=== PATIENT | male | born 1945 | race Caucasian/White ===

== ENCOUNTER 2018-06-30 15:01 | Emergency (ER) | payer OTHER, SELFPAY ==
[2018-06-30 15:06] VITALS: BP 144/83; PULSE 79; RESP 18; TEMP 35.9; O2SAT 97; BMI 36.0
--- NOTE | 2018-06-30 17:01 | DI.RAD.S_ITS ---
PROCEDURE: XR RIBS RT MIN 3V W CXR 1V INDICATIONS: pain R ribs after fall 4 days ago TECHNIQUE: 2 views of the right ribs were acquired, along with a single view chest. COMPARISON: None. FINDINGS: Surgical changes and devices: None. Bones and chest wall: There is likely a minimally displaced fracture of the posterior aspect of the right sixth rib. No other fractures or dislocations. Lungs and pleura: No pleural effusions or pneumothorax. Lungs appear clear. Mediastinum: Mediastinal contours appear normal. Heart size is normal. IMPRESSION: Minimally displaced posterior right sixth rib fracture. Dictated by: Susan Chen M.D. on 06/30/2018 at 17:35 Approved by: Susan Chen M.D. on 06/30/2018 at 17:37
--- NOTE | 2018-06-30 17:08 | PC.NURSE ---
Abrasions noted to the right arm. Patient states most of his pain is in the right rib/back area. It is made worse when he sits down and then leans forward to stand back up. Painful to touch.
--- NOTE | 2018-06-30 17:57 | ED.TRAUMA ---
HPI - Trauma <ALLISON Bustos-BC - Last Filed: 06/30/18 22:16> General Chief Complaint: Extremity Injury, Upper Stated Complaint: FALL SUNDAY,RIGHT SIDE ARM PAIN Time Seen by Provider: 06/30/18 16:43 Source: patient Mode of arrival: ambulatory Limitations: no limitations History of Present Illness HPI narrative: Patient presents with chief complaint of right-sided rib pain after ground level fall 4-5 days ago. He states he tripped and fell and landed with his ribs on a curb. He denies neck pain, back pain, neurological changes. He denies hitting his head. He states his injury is isolated to his right chest wall. He states it hurts to take a deep breath and hurts to move. He states he has not taken anything for pain at this point time. He states he is concerned that he fractured a rib given that he is not improving and would like an x-ray. Related Data Home Medications Medication Instructions Recorded Confirmed citalopram 20 mg PO QDAY #0 01/14/18 lisinopril 10 mg PO QDAY #0 01/14/18 metoprolol tartrate 25 mg PO QDAY #0 01/14/18 simvastatin 10 mg PO QDAY #0 01/14/18 Previous Rx's Medication Instructions Recorded docusate sodium [Colace] 100 mg PO BID #14 cap 01/22/18 oxycodone 5 mg PO Q4HP PRN #30 tab 01/22/18 sennosides [Senokot] 8.6 mg PO QDAY #10 tab 01/22/18 oxycodone-acetaminophen [Percocet] 1 tab PO Q4-6H PRN #14 tab 06/30/18 Allergies Allergy/AdvReac Type Severity Reaction Status Date / Time Penicillins [PENICILLINS] Allergy Unknown Verified 06/30/18 15:14 Review of Systems <RUPESH Bustos - Last Filed: 06/30/18 22:16> Review of Systems GENERAL: Denies chills, fatigue, malaise, fever, sweats. HEENT: Denies sinus pain, ear pain, sore throat, difficulty swallowing, dizziness. RESPIRATORY: Denies dyspnea, cough, wheezing, hemoptysis, sputum. CARDIOVASCULAR: Denies chest pain, palpitations, orthopnea, edema, GASTROINTESTINAL: Denies nausea, vomiting, abdominal pain, diarrhea, constipation, melena. : Denies dysuria, frequency, incontinence, hematuria, urinary retention. MUSCULOSKELETAL: See HPI SKIN: Denies rash, skin lesions, or other NEUROLOGIC: Denies weakness, headache, numbness, change in speech, confusion, seizures, incoordination. PSYCHIATRIC: No concerning psychosocial issues. 12 point review of systems is negative except for those stated above Exam <ALLISON Bustos-BC - Last Filed: 06/30/18 22:16> Narrative Exam Narrative: GENERAL: Obese gentleman sitting on stretcher. HEAD: Atraumatic. Normocephalic. No temporal or scalp tenderness. EYES: Pupils equal round and reactive. Extraocular motions intact. No scleral icterus. No injection or drainage. ENT: Nose without bleeding, purulent drainage or septal hematoma. Throat without erythema, tonsillar hypertrophy or exudate. Uvula midline. Airway patent. NECK: Trachea midline. No JVD or lymphadenopathy. Supple, nontender, no meningeal signs. CARDIOVASCULAR: Regular rate and rhythm without murmurs, gallops, or rubs. RESPIRATORY: Clear to auscultation. Breath sounds equal bilaterally. No wheezes, rales, or rhonchi. No cough on exam. GASTROINTESTINAL: Abdomen soft, non-tender, nondistended. No hepato-splenomegaly, or palpable masses. No guarding. EXTREMITIES: No clubbing, cyanosis, or edema. No joint tenderness, effusion, or edema noted. BACK: Nontender without deformity or crepitance. No flank tenderness. No pain on C-spine or spinal palpation patient does have pain to palpation right lower ribs. He does have pain on anterior posterior chest wall compression as well as lateral chest wall compression. NEURO: AOx3. SKIN: No rash or erythema. No erythema, ecchymosis or rash noted on chest wall. Initial Vital Signs Initial Vital Signs: Vital Signs Temperature 96.7 F L 06/30/18 15:06 Pulse Rate 79 06/30/18 15:06 Respiratory Rate 18 06/30/18 15:06 Blood Pressure 144/83 H 06/30/18 15:06 Pulse Oximetry 97 06/30/18 15:06 <Madhavi Cook DO - Last Filed: 07/03/18 07:52> Initial Vital Signs Initial Vital Signs: Vital Signs Temperature 96.7 F L 06/30/18 15:06 Pulse Rate 79 06/30/18 15:06 Respiratory Rate 18 06/30/18 15:06 Blood Pressure 144/83 H 06/30/18 15:06 Pulse Oximetry 97 06/30/18 15:06 Course <RUPESH Bustos - Last Filed: 06/30/18 22:16> Orders Ordered: Discontinued Medications Oxycodone/Acetaminophen (Endocet 5/325 Prepack) 1 bottle MISC SEEINSTR ONE Stop: 06/30/18 17:59 Last Admin: 06/30/18 18:23 Dose: 1 bottle Vital Signs - 8 hr 06/30/18 15:06 Temperature 96.7 F L Pulse Rate 79 Respiratory Rate 18 Blood Pressure 144/83 H Pulse Oximetry 97 <Madhavi Cook DO - Last Filed: 07/03/18 07:52> Orders Ordered: Discontinued Medications Oxycodone/Acetaminophen (Endocet 5/325 Prepack) 1 bottle MISC SEEINSTR ONE Stop: 06/30/18 17:59 Last Admin: 06/30/18 18:23 Dose: 1 bottle Vital Signs - 8 hr 06/30/18 15:06 Temperature 96.7 F L Pulse Rate 79 Respiratory Rate 18 Blood Pressure 144/83 H Pulse Oximetry 97 MDM - Trauma <RUPESH Bustos - Last Filed: 06/30/18 22:16> Imaging Data right ribs xray: Radiologist's impression: [address] [address] XRay Report Signed Patient: Elmer Bey MR#: [id number] : 1945 Acct:[id number] Age/Sex: 72 / M Date of Service: 06/30/18 Loc: ED Accession Number: [id number] Procedure: XR ribs RT min 3V w CXR1V Ordering Provider: Madhavi Watson PROCEDURE: XR RIBS RT MIN 3V W CXR 1V INDICATIONS: pain R ribs after fall 4 days ago TECHNIQUE: 2 views of the right ribs were acquired, along with a single view chest. COMPARISON: None. FINDINGS: Surgical changes and devices: None. Bones and chest wall: There is likely a minimally displaced fracture of the posterior aspect of the right sixth rib. No other fractures or dislocations. Lungs and pleura: No pleural effusions or pneumothorax. Lungs appear clear. Mediastinum: Mediastinal contours appear normal. Heart size is normal. IMPRESSION: Minimally displaced posterior right sixth rib fracture. Dictated by: Susan Chen M.D. on 06/30/2018 at 17:35 Approved by: Susan Chen M.D. on 06/30/2018 at 17:37 [facility] Narrative Medical decision making narrative: Patient presents several days after a fall onto his right ribs. He was noted to have a rib fracture. Otherwise he is hemodynamically stable. Vital signs. I discussed at length how rib skin take a long time to heal. I encouraged him to do deep breathing. I gave him a prescription of pain medication. Encouraged to follow up his primary care provider for a recheck if needed. I encouraged him to come back to the emergency department for any acute symptoms. He had no questions or concerns upon discharge. Discharge Plan Departure Patient Disposition: Home Clinical Impression: Closed rib fracture Discharge Date/Time: 06/30/18 18:30 Interventions: ED Discharge Assessment Last Done: 06/30/18 18:29 Instructions: DI for Rib Fracture Activity Restrictions/Additional Instructions: You broke a rib in your fall. I have given you a prescription of pain medication. Please take extra fiber, drink lots of water with this medication as it can make you constipated. Please keep deep breathing. It is important that you do not about pneumonia. Please follow up with primary care provider come back to the emergency department if needed. Unfortunately rib fractures can take a long time to heal. Prescriptions: New oxycodone-acetaminophen [Percocet] 5-325 mg tablet 1 tab PO Q4-6H PRN (Reason: pain) Qty: 14 RF: 0 No Action citalopram 40 MG tablet 20 mg PO QDAY Qty: 0 RF: 0 lisinopril 10 MG tablet 10 mg PO QDAY Qty: 0 RF: 0 simvastatin 10 MG tablet 10 mg PO QDAY Qty: 0 RF: 0 metoprolol tartrate 25 MG tablet 25 mg PO QDAY Qty: 0 RF: 0 sennosides [Senokot] 8.6 MG tablet 8.6 mg PO QDAY Qty: 10 RF: 0 docusate sodium [Colace] 100 MG capsule 100 mg PO BID Qty: 14 RF: 1 oxycodone 5 MG tablet 5 mg PO Q4HP PRNQty: 30 RF: 0 Referrals: Telma Cassidy PA-C [Primary Care Provider] - <Madhavi Cook DO - Last Filed: 07/03/18 07:52> Cosign ED Attending Elsaature Attestation: I was immediately available in the department for consultation. This documentation has been reviewed and I agree with assessment and plan. Supervised by Madhavi Cook DO
--- NOTE | 2018-06-30 18:01 | ED_ITS ---
HPI - Trauma <ALLISON Bustos-BC - Last Filed: 06/30/18 22:16> General Chief Complaint: Extremity Injury, Upper Stated Complaint: FALL SUNDAY,RIGHT SIDE ARM PAIN Time Seen by Provider: 06/30/18 16:43 Source: patient Mode of arrival: ambulatory Limitations: no limitations History of Present Illness HPI narrative: Patient presents with chief complaint of right-sided rib pain after ground level fall 4-5 days ago. He states he tripped and fell and landed with his ribs on a curb. He denies neck pain, back pain, neurological changes. He denies hitting his head. He states his injury is isolated to his right chest wall. He states it hurts to take a deep breath and hurts to move. He states he has not taken anything for pain at this point time. He states he is concerned that he fractured a rib given that he is not improving and would like an x-ray. Related Data Home Medications Medication Instructions Recorded Confirmed citalopram 20 mg PO QDAY #0 01/14/18 lisinopril 10 mg PO QDAY #0 01/14/18 metoprolol tartrate 25 mg PO QDAY #0 01/14/18 simvastatin 10 mg PO QDAY #0 01/14/18 Previous Rx's Medication Instructions Recorded docusate sodium [Colace] 100 mg PO BID #14 cap 01/22/18 oxycodone 5 mg PO Q4HP PRN #30 tab 01/22/18 sennosides [Senokot] 8.6 mg PO QDAY #10 tab 01/22/18 oxycodone-acetaminophen [Percocet] 1 tab PO Q4-6H PRN #14 tab 06/30/18 Allergies Allergy/AdvReac Type Severity Reaction Status Date / Time Penicillins [PENICILLINS] Allergy Unknown Verified 06/30/18 15:14 Review of Systems <RUPESH Bustos - Last Filed: 06/30/18 22:16> Review of Systems GENERAL: Denies chills, fatigue, malaise, fever, sweats. HEENT: Denies sinus pain, ear pain, sore throat, difficulty swallowing, dizziness. RESPIRATORY: Denies dyspnea, cough, wheezing, hemoptysis, sputum. CARDIOVASCULAR: Denies chest pain, palpitations, orthopnea, edema, GASTROINTESTINAL: Denies nausea, vomiting, abdominal pain, diarrhea, constipation, melena. : Denies dysuria, frequency, incontinence, hematuria, urinary retention. MUSCULOSKELETAL: See HPI SKIN: Denies rash, skin lesions, or other NEUROLOGIC: Denies weakness, headache, numbness, change in speech, confusion, seizures, incoordination. PSYCHIATRIC: No concerning psychosocial issues. 12 point review of systems is negative except for those stated above Exam <ALLISON Bustos-BC - Last Filed: 06/30/18 22:16> Narrative Exam Narrative: GENERAL: Obese gentleman sitting on stretcher. HEAD: Atraumatic. Normocephalic. No temporal or scalp tenderness. EYES: Pupils equal round and reactive. Extraocular motions intact. No scleral icterus. No injection or drainage. ENT: Nose without bleeding, purulent drainage or septal hematoma. Throat without erythema, tonsillar hypertrophy or exudate. Uvula midline. Airway patent. NECK: Trachea midline. No JVD or lymphadenopathy. Supple, nontender, no meningeal signs. CARDIOVASCULAR: Regular rate and rhythm without murmurs, gallops, or rubs. RESPIRATORY: Clear to auscultation. Breath sounds equal bilaterally. No wheezes , rales, or rhonchi. No cough on exam. GASTROINTESTINAL: Abdomen soft, non-tender, nondistended. No hepato-splenomegaly , or palpable masses. No guarding. EXTREMITIES: No clubbing, cyanosis, or edema. No joint tenderness, effusion, or edema noted. BACK: Nontender without deformity or crepitance. No flank tenderness. No pain on C-spine or spinal palpation patient does have pain to palpation right lower ribs. He does have pain on anterior posterior chest wall compression as well as lateral chest wall compression. NEURO: AOx3. SKIN: No rash or erythema. No erythema, ecchymosis or rash noted on chest wall. Initial Vital Signs Initial Vital Signs: Vital Signs Temperature 96.7 F L 06/30/18 15:06 Pulse Rate 79 06/30/18 15:06 Respiratory Rate 18 06/30/18 15:06 Blood Pressure 144/83 H 06/30/18 15:06 Pulse Oximetry 97 06/30/18 15:06 <Madhavi Cook DO - Last Filed: 07/03/18 07:52> Initial Vital Signs Initial Vital Signs: Vital Signs Temperature 96.7 F L 06/30/18 15:06 Pulse Rate 79 06/30/18 15:06 Respiratory Rate 18 06/30/18 15:06 Blood Pressure 144/83 H 06/30/18 15:06 Pulse Oximetry 97 06/30/18 15:06 Course <RUPESH Bustos - Last Filed: 06/30/18 22:16> Orders Ordered: Discontinued Medications Oxycodone/Acetaminophen (Endocet 5/325 Prepack) 1 bottle MISC SEEINSTR ONE Stop: 06/30/18 17:59 Last Admin: 06/30/18 18:23 Dose: 1 bottle Vital Signs - 8 hr 06/30/18 15:06 Temperature 96.7 F L Pulse Rate 79 Respiratory Rate 18 Blood Pressure 144/83 H Pulse Oximetry 97 <Madhavi Cook DO - Last Filed: 07/03/18 07:52> Orders Ordered: Discontinued Medications Oxycodone/Acetaminophen (Endocet 5/325 Prepack) 1 bottle MISC SEEINSTR ONE Stop: 06/30/18 17:59 Last Admin: 06/30/18 18:23 Dose: 1 bottle Vital Signs - 8 hr 06/30/18 15:06 Temperature 96.7 F L Pulse Rate 79 Respiratory Rate 18 Blood Pressure 144/83 H Pulse Oximetry 97 MDM - Trauma <RUPESH Bustos - Last Filed: 06/30/18 22:16> Imaging Data right ribs xray: Radiologist's impression: [address] [address] XRay Report Signed Patient: Elmer Bey MR#: [id number] : 1945 Acct:[id number] Age/Sex: 72 / M Date of Service: 06/30/18 Loc: ED Accession Number: [id number] Procedure: XR ribs RT min 3V w CXR1V Ordering Provider: Madhavi Watson PROCEDURE: XR RIBS RT MIN 3V W CXR 1V INDICATIONS: pain R ribs after fall 4 days ago TECHNIQUE: 2 views of the right ribs were acquired, along with a single view chest. COMPARISON: None. FINDINGS: Surgical changes and devices: None. Bones and chest wall: There is likely a minimally displaced fracture of the posterior aspect of the right sixth rib. No other fractures or dislocations. Lungs and pleura: No pleural effusions or pneumothorax. Lungs appear clear. Mediastinum: Mediastinal contours appear normal. Heart size is normal. IMPRESSION: Minimally displaced posterior right sixth rib fracture. Dictated by: Susan Chen M.D. on 06/30/2018 at 17:35 Approved by: Susan Chen M.D. on 06/30/2018 at 17:37 [facility] Narrative Medical decision making narrative: Patient presents several days after a fall onto his right ribs. He was noted to have a rib fracture. Otherwise he is hemodynamically stable. Vital signs. I discussed at length how rib skin take a long time to heal. I encouraged him to do deep breathing. I gave him a prescription of pain medication. Encouraged to follow up his primary care provider for a recheck if needed. I encouraged him to come back to the emergency department for any acute symptoms. He had no questions or concerns upon discharge. Discharge Plan Departure Patient Disposition: Home Clinical Impression: Closed rib fracture Discharge Date/Time: 06/30/18 18:30 Interventions: ED Discharge Assessment Last Done: 06/30/18 18:29 Instructions: DI for Rib Fracture Activity Restrictions/Additional Instructions: You broke a rib in your fall. I have given you a prescription of pain medication. Please take extra fiber, drink lots of water with this medication as it can make you constipated. Please keep deep breathing. It is important that you do not about pneumonia. Please follow up with primary care provider come back to the emergency department if needed. Unfortunately rib fractures can take a long time to heal. Prescriptions: New oxycodone-acetaminophen [Percocet] 5-325 mg tablet 1 tab PO Q4-6H PRN (Reason: pain) Qty: 14 RF: 0 No Action citalopram 40 MG tablet 20 mg PO QDAY Qty: 0 RF: 0 lisinopril 10 MG tablet 10 mg PO QDAY Qty: 0 RF: 0 simvastatin 10 MG tablet 10 mg PO QDAY Qty: 0 RF: 0 metoprolol tartrate 25 MG tablet 25 mg PO QDAY Qty: 0 RF: 0 sennosides [Senokot] 8.6 MG tablet 8.6 mg PO QDAY Qty: 10 RF: 0 docusate sodium [Colace] 100 MG capsule 100 mg PO BID Qty: 14 RF: 1 oxycodone 5 MG tablet 5 mg PO Q4HP PRNQty: 30 RF: 0 Referrals: Telma Cassidy PA-C [Primary Care Provider] - <Madhavi Cook DO - Last Filed: 07/03/18 07:52> Cosign ED Attending Elsaature Attestation: I was immediately available in the department for consultation. This documentation has been reviewed and I agree with assessment and plan. Supervised by Madhavi Cook DO
[2018-06-30] MEDS: OXYCODONE/APAP 5/325 PREPACK 1 BOTTLE MISC (18:23)
== END 2018-06-30 18:30 | disposition home or self-care (01) ==
PROVIDERS: Emergency Provider Nurse Practitioner Family; Family Provider Physician Assistant; PCP Physician Assistant
DX: S22.31XA Fracture of one rib, right side, initial encounter for closed fracture (principal); W18.43XA Slipping, tripping and stumbling without falling due to stepping from one level to another, initial encounter
CPT/HCPCS: 71101; 99282; 99283

== ENCOUNTER 2024-12-05 08:12 | Emergency (ER) | payer MEDICARE, SELFPAY ==
[2024-12-05 08:30] VITALS: BP 119/68; PULSE 90; RESP 16; TEMP 36.4; O2SAT 95; BMI 35.2
--- NOTE | 2024-12-05 08:43 | ED_ITS ---
HPI - Male Genitourinary General Chief complaint: Urogenital-Male Stated complaint: blood in urine Time Seen by Provider: 12/05/24 08:31 Mode of arrival: Ambulatory History of Present Illness HPI Narrative: Patient is an 79-year-old male with history of cholecystectomy and hypertension but otherwise states he has no significant past medical history who for the last 3 years has had intermittent blood in the urine, states that over the last several days it has been frankly bloody and worse. Endorses pain with urination and inability to urinate occasionally. Denies any fevers any chills any pain that radiates to his back or abdominal pain. Continues to eat and drink well. He states that he has not on any blood thinning medications that he knows of. Denies any testicular pain. He states that the pain comes and goes and is generally just associated with trying to urinate. He is never seen a urologist in the past Related Data Home Medications Medication Instructions Recorded Confirmed citalopram 40 mg tablet 20 mg PO QDAY ##0 01/14/18 lisinopril 10 mg tablet 10 mg PO QDAY ##0 01/14/18 metoprolol tartrate 25 mg tablet 25 mg PO QDAY ##0 01/14/18 simvastatin 10 mg tablet 10 mg PO QDAY ##0 01/14/18 Previous Rx's Medication Instructions Recorded docusate sodium 100 mg capsule 100 mg PO BID #14 caps 01/22/18 (Colace) oxycodone 5 mg tablet 5 mg PO Q4HP PRN #30 tabs 01/22/18 sennosides 8.6 mg tablet (Senokot) 8.6 mg PO QDAY #10 tabs 01/22/18 oxycodone-acetaminophen 5 mg-325 1 tab PO Q4-6H PRN pain #14 tabs 06/30/18 mg tablet (Percocet) Allergies Allergy/AdvReac Type Severity Reaction Status Date / Time Penicillins [PENICILLINS] Allergy Unknown Verified 12/05/24 08:30 Review of Systems Review of Systems Narrative: Patient's review of system negative other than what was documented in HPI Patient History Social History Smoking Status: Former smoker Smoking Status: Former smoker alcohol intake frequency: 0-2 drinks per day Exam Initial Vital Signs Initial Vital Signs: Vital Signs Temperature 97.6 F 12/05/24 08:30 Pulse Rate 90 12/05/24 08:30 Respiratory Rate 16 12/05/24 08:30 Blood Pressure 119/68 12/05/24 08:30 Pulse Oximetry 95 12/05/24 08:30 Oxygen Delivery Method Room Air 12/05/24 08:30 Const General: cooperative and healthy appearing [facility] Head: normal to inspection and normocephalic Eyes General: Yes appearance normal, both eyes and all related structures Neck Neck: normal visual inspection Chest Chest: normal inspection of the chest Resp Effort & Inspection: normal respiratory effort Auscultation: clear to auscultation bilaterally Cardio Rate: regular rate GI Inspection: normal to inspection Percussion: normal to percussion Rectal Exam: visual inspection normal General: No CVA tenderness Back/Spine/Pelvis Back: normal to inspection Course Orders Ordered: ED Orders 12/05/24 08:50 Urinalysis and Microscopic Stat 12/05/24 09:03 CBC Auto Diff [Complete Blood Count AUTO DIFF] Stat CMP [Comprehensive Metabolic Panel] Stat PT [Prothrombin Time INR] Stat Discontinued Medications Lidocaine HCl (Lidocaine 2% (Glydo) 6 Ml Gel) 6 ml TOP NOW ONE Stop: 12/05/24 09:07 Last Admin: 12/05/24 10:17 Dose: 6 ml Documented By: CAESAR Vital Signs Vital signs: Vital Signs - 8 hr 12/05/24 08:30 Temperature 97.6 F Pulse Rate 90 Respiratory Rate 16 Blood Pressure 119/68 Pulse Oximetry 95 Oxygen Delivery Method Room Air MDM - Male Genitourinary Differential Diagnosis Differential diagnosis: Likely other Lab Data 12/05/24 09:03 12/05/24 09:03 Labs: Lab Results 12/05/24 12/05/24 Range/Units 08:50 09:03 WBC 8.1 (4.5-11.0) X10^3/uL RBC 4.45 L (4.5-5.9) X10^6/uL Hgb 13.7 (13.5-17.5) g/dL Hct 40.6 L (41-53) % MCV 91.1 (80-100) fL MCH 30.9 (26-34) PG MCHC 33.9 (30-36) % RDW 14.4 (11.6-14.8) % Plt Count 335 (150-400) X10^3/uL Neut % (Auto) 63.2 (50-75) % Lymph % (Auto) 24.4 L (25-40) % [place] % (Auto) 8.7 (3-14) % Eos % (Auto) 2.5 (2-4) % Baso % (Auto) 1.2 (0-2) % Neut # (Auto) 5100 (1583-7233) /uL Lymph # (Auto) 2000 (1322-9437) /uL [place] # (Auto) 700 (0-900) /uL Eos # (Auto) 200 (0-450) /uL Baso # (Auto) 100 (0-100) /uL PT 12.1 (9.4-12.5) SECONDS INR 1.1 (0.9-1.3) Sodium 137 (137-145) mmol/L Potassium 4.4 (3.4-5.1) mmol/L Chloride 105 (98-107) mmol/L Carbon Dioxide 26 (22-32) mmol/L BUN 16 (9-20) mg/dL Creatinine 0.95 (0.66-1.25) mg/dL Estimated GFR > 60 (>60) mL/min BUN/Creatinine Ratio 16.8 (6-22) Glucose 112 H (80-110) mg/dL Calcium 9.1 (8.4-10.2) mg/dL Total Bilirubin 0.8 (0.2-1.3) mg/dL AST 28 (17-59) IU/L ALT 18 (<50) IU/L Alkaline Phosphatase 61 (38-126) U/L Total Protein 7.2 (6.3-8.2) g/dL Albumin 4.1 (3.5-5.0) g/dL Globulin 3.1 (1.7-4.1) g/dL Albumin/Globulin Ratio 1.3 (1.0-2.8) Urine Color Red Urine Appearance Cloudy Urine pH 7.0 (4.5-8.0) Ur Specific [place] 1.025 (1.000-1.035) Urine Protein 3+ H (Negative) Urine Glucose (UA) Negative (Negative) g/dL Urine Ketones Negative (NEGATIVE) Urine Occult Blood 3+ H (Negative) Urine Nitrate Negative (Negative) Urine Bilirubin Negative (NEGATIVE) Urine Urobilinogen 2.0 H (0.2) E.U./dL Ur Leukocyte Esterase Trace H (NEGATIVE) Urine RBC >100/hpf H (0-5/HPF) Urine WBC 0-1/hpf (0-5/HPF) Ur Squamous Epith Cells None seen (0-5/HPF) Ur Transition Epith Cell 0-1/hpf (0-5/HPF) Urine Bacteria None seen (None) Ur Culture Indicated? Cult not indicated Vol Urine Centrifuged Low vol <10ml (spun) A On evaluation of patient's labs he does not appear to have significant thrombocytopenia, red blood cell/hemoglobin within normal limits to not suspect critical anemia, no signs of significantly abnormal PT or INR. -patient's urinalysis shows blood, no signs of significant infection with no significant elevations in white blood cell, leukocyte esterase or bacteria MDM Narrative Medical decision making narrative: 79-year-old male with history of cholecystectomy, hypertension but no other endorsed past medical history not on blood thinners presenting with 3 years of intermittent hematuria now worsening over the last week no lightheadedness, weakness dizziness, encounters pain in the urethra when urinating only. Differential diagnosis includes but is not limited to bladder malignancy, BPH, kidney injury, bleeding disorder, Patient presents well appearing and in no acute distress stable vital signs, mentating appropriately, we will obtain blood work to evaluate for signs of significant blood loss, thrombocytopenia or abnormal PT/INRs. Will test patient's urine for signs of infection, does appear frankly bloody on exam, I placed 3 way Jacobs, irrigate if necessary and have patient follow-up with urology for cystoscopy in the future. -patient had continuous bladder irrigation in the ED with 2 L of fluid which resulted in clear light pink fluid out of the Jacobs. I discussed with the patient the need to follow up with a urologist shortly and he was given the phone number in clinic address to make an appointment was instructed to return to the ED if unable to make an appointment within a week or if he had worsening symptoms and inability to have urine flow through the Jacobs Discharge Plan Departure Patient Disposition: Home Clinical Impression: Hematuria Activity Restrictions/Additional Instructions: You were seen in the emergency department today for bleeding in your urine, you had a Jacobs catheter placed that will need to be evaluated by a urologist, please call them as soon as possible in order to make an appointment. Please let them know you have a Jacobs in place from the ED and need a cystoscopy to evaluate for the cause of your hematuria. If you are unable to make an appointment with the urologist within the next week, began to have worsening abdominal pain, fevers, chills or notice that your Jacobs is no longer producing urine please return to the emergency department for re-evaluation. Please call the office of at [address] [phone] Prescriptions: No Action citalopram 40 MG tablet 20 mg PO QDAY Qty: 0 lisinopril 10 MG tablet 10 mg PO QDAY Qty: 0 simvastatin 10 MG tablet 10 mg PO QDAY Qty: 0 metoprolol tartrate 25 MG tablet 25 mg PO QDAY Qty: 0 sennosides [Senokot] 8.6 MG tablet 8.6 mg PO QDAY Qty: 10 0RF docusate sodium [Colace] 100 MG capsule 100 mg PO BID Qty: 14 1RF oxycodone 5 MG tablet 5 mg PO Q4HP PRNQty: 30 0RF oxycodone-acetaminophen [Percocet] 5-325 mg tablet 1 tab PO Q4-6H PRN (Reason: pain) Qty: 14 0RF Referrals: Telma Cassidy PA-C [Primary Care Provider] - Stand Alone Forms: Patient Portal/API/Survey
[2024-12-05 09:10] LABS: Appearance Urine UA CLOUDY; Bilirubin Urine UA NEGATIVE (NEGATIVE); Color Urine UA RED; Glucose Urine UA NEGATIVE (Negative); Ketones Urine UA NEGATIVE (NEGATIVE); Leukocyte Esterase Urine UA TRACE (NEGATIVE); Nitrite Urine UA NEGATIVE (Negative); Occult Blood Urine UA 3+ (Negative); Protein Urine UA 3+ (Negative); Specific Gravity Urine UA 1.025 (1.000-1.035)
[2024-12-05 09:14] LABS: Bacteria Urine None Seen; Culture Indicated Urine Cult Not Indicated; RBC Urine >100/HPF (0-5/HPF); Squamous Epithelial Cell Urine None Seen (0-5/HPF); Transitional Epi Cells Urine 0-1/HPF (0-5/HPF); Urine Volume Low Vol <10mL (spun); WBC Urine 0-1/HPF (0-5/HPF)
[2024-12-05 09:19] LABS: Add Manual Diff / Slide Review NO; Basophils Absolute Auto 100 /uL (0-100); Basophils Percent Auto 1.2 % (0-2); Eosinophils Absolute Auto 200 /uL (0-450); Eosinophils Percent Auto 2.5 % (2-4); Hematocrit 40.6 % (41-53); Hemoglobin 13.7 g/dL (13.5-17.5); Lymphocytes Absolute Auto 2000 /uL (1100-4500); Lymphocytes Percent Auto 24.4 % (25-40); Mean Corpuscular HGB Conc 33.9 % (30-36); Mean Corpuscular Hemoglobin 30.9 PG (26-34); Mean Corpuscular Volume 91.1 fL (80-100); Monocytes Absolute Auto 700 /uL (0-900); Monocytes Percent Auto 8.7 % (3-14); Neutrophils Absolute Auto 5100 /uL (1500-7000); Neutrophils Percent Auto 63.2 % (50-75); Platelet Count 335 X10^3/uL (150-400); Red Blood Cell Count 4.45 X10^6/uL (4.5-5.9); Red Cell Distribution Width 14.4 % (11.6-14.8); White Blood Cell Count 8.1 X10^3/uL (4.5-11.0)
[2024-12-05 09:25] LABS: INR 1.1 (0.9-1.3); Prothrombin Time 12.1 SECONDS (9.4-12.5)
[2024-12-05 09:30] LABS: Alanine Aminotransferase 18 IU/L (<50); Albumin 4.1 g/dL (3.5-5.0); Albumin Globulin Ratio 1.3 (1.0-2.8); Alkaline Phosphatase 61 U/L (38-126); Aspartate Aminotransferase 28 IU/L (17-59); BUN Creatinine Ratio 16.8 (6-22); Bilirubin Total 0.8 mg/dL (0.2-1.3); Blood Urea Nitrogen 16 mg/dL (9-20); Calcium 9.1 mg/dL (8.4-10.2); Carbon Dioxide 26 mmol/L (22-32); Chloride 105 mmol/L (98-107); Estimated Glomerular Filt Rate > 60 mL/min (>60); Globulin 3.1 g/dL (1.7-4.1); Glucose 112 mg/dL (80-110); HEMOLYSIS < 15 (0-50); Potassium 4.4 mmol/L (3.4-5.1); Sodium 137 mmol/L (137-145); Total Protein 7.2 g/dL (6.3-8.2)
[2024-12-05] MEDS: LIDOCAINE 2% (GLYDO) 6 ML GEL TOP (10:17)
--- NOTE | 2024-12-05 11:29 | PC.NURSE ---
2250 ml input from bladder manual and continuous irrigation--2500 output. MD Maloney updated that urine started to clear up from red to pale/pink. RN attempted a couple more manual irrigations with 200cc fluid after completion of 2L irrigation bag; more small clots noted; urine red again. notified. Recheck planned by oncoming nurse som at 1130
[2024-12-05 13:01] VITALS: BP 126/61; PULSE 72; RESP 16; O2SAT 94
== END 2024-12-05 13:02 | disposition home or self-care (01) ==
PROVIDERS: Emergency Provider Emergency Medicine; Family Provider Physician Assistant; PCP Physician Assistant
DX: R31.9 Hematuria, unspecified (principal); R33.9 Retention of urine, unspecified
CPT/HCPCS: 51700; 51798; 80053; 81001; 85025; 85610; 99281; 99283; 99284

== ENCOUNTER 2024-12-05 16:13 | Emergency (ER) | payer MEDICARE, SELFPAY ==
[2024-12-05 16:49] VITALS: BP 131/72; PULSE 110; RESP 17; TEMP 36.6; O2SAT 95; BMI 34.4
== END 2024-12-05 22:16 | disposition left against medical advice (07) ==
PROVIDERS: Emergency Provider Emergency Medicine; Family Provider Physician Assistant; PCP Physician Assistant
DX: R33.9 Retention of urine, unspecified (principal); R31.9 Hematuria, unspecified
CPT/HCPCS: 99281

== ENCOUNTER 2024-12-10 04:58 | Emergency (ER) | payer MEDICARE, SELFPAY ==
--- NOTE | 2024-12-10 05:01 | ED_ITS ---
HPI - Male Genitourinary General Chief complaint: Urogenital-Male Stated complaint: needs catheter out Time Seen by Provider: 12/10/24 05:01 History of Present Illness HPI Narrative: Patient is a 79-year-old male past medical history of hypertension hematuria comes into the ED from home for removal of his Jacobs catheter. He states that it was seen here several days ago had a Jacobs catheter placed due to gross hematuria and urinary retention. Patient states that he has been having p ersistent pain to his bladder/penis secondary to Jacobs catheter, he states that it has been working appropriately but wants it ?out immediately he states that he has been in constant pain and does not want it in any longer. He states he does have an appointment this Sunday with a urologist, however he states that he can not wait and would like the Jacobs catheter out now. He denies any other sym ptoms such as headache visual disturbances chest pain shortness breath fever chills nausea vomiting abdominal pain or any other GI/ symptoms time. Not on any blood thinners. Related Data Home Medications Medication Instructions Recorded Confirmed citalopram 40 mg tablet 20 mg PO QDAY ##0 01/14/18 lisinopril 10 mg tablet 10 mg PO QDAY ##0 01/14/18 metoprolol tartrate 25 mg tablet 25 mg PO QDAY ##0 01/14/18 simvastatin 10 mg tablet 10 mg PO QDAY ##0 01/14/18 Previous Rx's Medication Instructions Recorded docusate sodium 100 mg capsule 100 mg PO BID #14 caps 01/22/18 (Colace) oxycodone 5 mg tablet 5 mg PO Q4HP PRN #30 tabs 01/22/18 sennosides 8.6 mg tablet (Senokot) 8.6 mg PO QDAY #10 tabs 01/22/18 oxycodone-acetaminophen 5 mg-325 1 tab PO Q4-6H PRN pain #14 tabs 18 mg tablet (Percocet) Allergies Allergy/AdvReac Type Severity Reaction Status Date / Time Penicillins [PENICILLINS] Allergy Unknown Verified 12/05/24 16:52 Review of Systems Review of Systems Narrative: General: Denies fever, chills, weight loss HEENT: Denies headache, eye drainage, eye irritation, head trauma, sore throat, voice change Cardiovascular: Denies any chest pain, palpitations, shortness of breath, tachycardia Respiratory: Denies any shortness of breath, cough, wheeze, stridor GI/: Positive Pain with Jacobs catheter, Denies any abdominal pain, nausea, vomiting, diarrhea, bright red blood per rectum, melanotic stools, urinary frequency, urinary retention, dysuria, hematuria MSK: Denies any joint pain, muscle pains, swelling Skin: Denies any rashes, lesions, discoloration Neuro: Denies any headache, lightheadedness, dizziness, fainting, weakness Psych: Denies SI/HI Patient History Social History Smoking Status: Former smoker Smoking Status: Former smoker alcohol intake frequency: 0-2 drinks per day Exam Narrative Exam Narrative: General: Cooperative, comfortable, well-developed, not in acute distress HEENT: Normocephalic, atraumatic, PERRLA, normal sclera, eyelids normal, Neck: Active full range of motion, atraumatic Chest: Normal to inspection, negative crepitus, no overlying erythema ecchymosis Respiratory: Normal respiratory effort, not in acute respiratory distress, clear to auscultation bilaterally negative cough, wheeze, tachypnea, rhonchi, rales Cardiology: Regular rate rhythm negative gallop, murmur, rubs GI/: Normal to inspection, soft, nonrigid, no tenderness to palpation, exam, Jacobs catheter in place draining urine, opening/head of the meatus without any gross hematuria, no other gross abnormalities noted MSK: Full range of active range of motion of all 4 extremities, atraumatic Skin: No rashes lesions noted Neuro: Alert awake oriented x3, moves all 4 extremities spontaneously, cranial nerves intact, able to answer all questions appropriately follows commands appropriately Psych: Cooperative, negative suicidal or homicidal ideations MDM - Male Genitourinary Differential Diagnosis Differential diagnosis: Likely acute retention of urine and other (Encounter for Jacobs catheter removal) MDM Narrative Medical decision making narrative: 79-year-old male with a history of hypertension presents to the emergency department for pain with Jacobs catheter. He states that he was seen here and had a Jacobs catheter placed given the fact that he has been having hematuria and urinary retention intermittently for a few days. He presents today because he is having persistent pain in his bladder/penis secondary to Jacobs, he states that he would like this removed today. He states he can not ?handle the pain and discomfort he states he does have an appointment with a urologist this Sunday but can not wait any longer. Review of records show that patient had 3 way Jacobs catheter placed for gross hematuria, as well as urinary retention. I informed patient that it would be safer to have Jacobs catheter remain in place and I can provide him medication for bladder spasming, however he states that he does not want this he wants the Jacobs catheter out. I informed him that if he has persistent urinary retention he will need to have the Jacobs catheter back in otherwise he runs the risk of having acute kidney injury/renal failure. He states he understands and still wants the Jacobs catheter out, he states that he will follow up with the urologist for a scheduled appointment this Sunday and will return to the emergency department if he has persistent urinary retention. Patient was given strict return precautions he verbalized understanding of this and agrees to being discharged home with outpatient follow up Discharge Plan Departure Patient Disposition: Home Clinical Impression: Encounter for Jacobs catheter removal Instructions: DI for Urinary Retention in Men Activity Restrictions/Additional Instructions: Please follow up with your urologist for a scheduled appointment, please return to the emergency department if you have issues urinating Please read the discharge instructions sheet carefully and bring all papers to all doctor follow-up visits, as it may contain information that your doctor may want to see. Disease processes change and evolve, if your symptoms worsen or if you develop any new symptoms that are concerning to you please return for evaluation. Your evaluation today does not show any evidence of any life- threatening/serious illnesses requiring admission to the hospital or surgery. Please follow-up with your doctor for re-evaluation in approximately 1 day. Seek immediate medical attention for any worrisome symptoms. *If you do not have a primary care provider please contact the [facility] Resource line at [phone]. They will ask some questions about your medical history and help get you set up with a doctor in the community. Prescriptions: No Action citalopram 40 MG tablet 20 mg PO QDAY Qty: 0 lisinopril 10 MG tablet 10 mg PO QDAY Qty: 0 simvastatin 10 MG tablet 10 mg PO QDAY Qty: 0 metoprolol tartrate 25 MG tablet 25 mg PO QDAY Qty: 0 sennosides [Senokot] 8.6 MG tablet 8.6 mg PO QDAY Qty: 10 0RF docusate sodium [Colace] 100 MG capsule 100 mg PO BID Qty: 14 1RF oxycodone 5 MG tablet 5 mg PO Q4HP PRNQty: 30 0RF oxycodone-acetaminophen [Percocet] 5-325 mg tablet 1 tab PO Q4-6H PRN (Reason: pain) Qty: 14 0RF Referrals: Telma Cassidy PA-C [Primary Care Provider] - Stand Alone Forms: Patient Portal/API/Survey
[2024-12-10 05:07] VITALS: BP 147/69; PULSE 88; RESP 16; TEMP 36.4; O2SAT 98; BMI 34.4
[2024-12-10] MEDS: PHENAZOPYRIDINE 100 MG TABLET PO (05:16)
[2024-12-10 05:23] VITALS: PULSE 80; O2SAT 94
[2024-12-10 05:30] VITALS: PULSE 79; O2SAT 95
[2024-12-10 05:31] VITALS: BP 136/66; PULSE 79; RESP 18; O2SAT 94
--- NOTE | 2024-12-10 05:37 | PC.NURSE ---
Pt arrived to Ed with a 20 divehi indwelling catheter. This nurse d/c this deleon catheter per physician order. No complication. 30cc removed from catheter balloon. Balloon intact after removal. pt states he feels better after catheter removed.
== END 2024-12-10 05:42 | disposition home or self-care (01) ==
PROVIDERS: Emergency Provider Student in an Organized Health Care Education/Training Program; Family Provider Physician Assistant; PCP Physician Assistant
DX: T83.84XA Pain due to genitourinary prosthetic devices, implants and grafts, initial encounter (principal)
CPT/HCPCS: 99283

== ENCOUNTER → 2024-12-18 09:20 | Outpatient (CLI) | payer MEDICARE, SELFPAY ==
--- NOTE | 2024-12-18 09:22 | DI.CT.S_ITS ---
PROCEDURE: CT IVP A/P W/WO INDICATIONS: 79 y/o M w/ gross hematuria, eval upper tracts. TECHNIQUE: Optional 5 mm thick noncontrast images acquired from the diaphragm to the symphysis pubis. After the administration of intravenous contrast, 5 mm thick images acquired from the diaphragm to the symphysis pubis after a 10-minute delay. 2 mm thick coronal and sagittal reformats were then performed of the kidneys and ureters. For radiation dose reduction, the following was used: automated exposure control, adjustment of mA and/or kV according to patient size. COMPARISON: [facility], [place], ABDOMEN COMPLETE, 12/13/2017, 23:36. [facility] [place], RENAL COMPLETE, 10/28/2015, 8:43. FINDINGS: Image quality: Diagnostic. Kidneys and Ureters: Both kidneys are normal in size, without hydronephrosis or nephrolithiasis. Moderately prominent renal artery calcifications incidentally noted. No perinephric fat stranding. There is normal bilateral renal enhancement. Renal calyces appear normal in morphology when filled with contrast. Opacified portions of both ureters demonstrate normal caliber. Bladder: Bladder wall thickness is initially difficult to accurately assess due to minimal bladder filling by excreted contrast enhanced urine. However, delayed pelvic images were then obtained with additional urine filling allowing clear visualization of a large rounded midline soft tissue mass emanating from the anterior bladder wall, which appears thickened both at the midline and slightly to the right and left. The rounded bladder mass itself measures up to 3.7 cm craniocaudad, 4.5 cm AP and 4.3 cm transverse. Mild irregularity along the peripheral aspect of the anterior bladder wall is present, possibly indicating early invasion, versus lymphedema. Along the posterior aspect of the bladder mass several calcifications are present, likely dystrophic. No definite separate calcified bladder stones. OTHER: Lower chest: Unremarkable. Liver: No solid mass. Multiple small and moderate-sized hepatic cysts measuring water density. Gallbladder: Prior cholecystectomy. Biliary ducts: No biliary dilation. Pancreas: No ductal dilation. Spleen: Size is within normal limits. Adrenal Glands: No adrenal nodules. Stomach and Bowel: Normal colonic caliber, without significant wall thickening. Peritoneum: No abnormal intraperitoneal fluid. No free air. Ventral Wall: No hernia. Abdominal Nodes: No retroperitoneal or mesenteric adenopathy by size criteria. Vessels: Aorta and inferior vena cava are normal in size. PELVIS: Pelvic Organs: Unremarkable. Pelvic Nodes: No enlarged lymph nodes. Miscellaneous: No inguinal hernias are seen. Bilateral hydroceles incidentally noted. Bones: No aggressive osseous abnormality. IMPRESSION: 4.5 cm solid rounded bladder mass emanating from the anterior midline bladder wall. This mass does not currently impinge on the ureteral insertions, but is associated with mild stranding in the immediately adjacent anterior fatty soft tissues of the extraperitoneal pelvis. Early invasion may be present versus lymphedema as cause of this appearance. No regional adenopathy or distant metastatic disease is found. Dictated by: Antoine Rebolledo M.D. on 12/18/2024 at 12:37 Approved by: Antoine Rebolledo M.D. on 12/18/2024 at 12:52
== END ==
LOC: CT 09:21
PROVIDERS: Referring Provider Urology; Visit Provider Urology
DX: N32.9 Bladder disorder, unspecified (principal); R31.0 Gross hematuria; N43.3 Hydrocele, unspecified; Z90.49 Acquired absence of other specified parts of digestive tract
CPT/HCPCS: 74178; Q9967

== ENCOUNTER → 2024-12-23 16:00 | Outpatient (CLI) | payer MEDICARE, SELFPAY | PROVIDERS: Visit Provider Urology | DX: R31.0 Gross hematuria (principal); N40.1 Benign prostatic hyperplasia with lower urinary tract symptoms | CPT/HCPCS: 87086 ==

== ENCOUNTER → 2025-01-24 12:30 | Outpatient (CLI) | payer MEDICARE, SELFPAY ==
--- NOTE | 2025-01-24 12:33 | DI.RAD.S_ITS ---
PROCEDURE: XR RIBS BI MIN 4V W CXR1V INDICATIONS: Rib pain, ground level fall TECHNIQUE: 4 views of the ribs were acquired, along with a single view chest. COMPARISON: None. FINDINGS: Surgical changes and devices: None. Bones and chest wall: Age indeterminate deformity involving right anterolateral 6th and 7th ribs. No displaced left rib fractures. No suspicious bony lesions. Overlying soft tissues appear unremarkable. Lungs and pleura: No pleural effusions or pneumothorax. Lungs appear clear. Mediastinum: Mediastinal contours appear normal. Heart size is normal. IMPRESSION: 1. No displaced left rib fractures. Age indeterminate, possibly old deformity involving right anterolateral 6 and 7th ribs. 2. No acute cardiopulmonary pathology. Dictated by: Julio C Crow M.D. on 01/24/2025 at 13:41 Approved by: Julio C Crow M.D. on 01/24/2025 at 13:43
== END ==
LOC: RAD 12:32
PROVIDERS: Referring Provider Physician Assistant; Visit Provider Physician Assistant
DX: R07.81 Pleurodynia (principal)
CPT/HCPCS: 71111

== ENCOUNTER → 2025-01-28 15:02 | Outpatient (CLI) | payer MEDICARE, SELFPAY ==
[2025-01-28 15:17] LABS: Bilirubin Urine UA NEGATIVE (NEGATIVE); Glucose Urine UA NEGATIVE (Negative); Ketones Urine UA TRACE (NEGATIVE); Leukocyte Esterase Urine UA 2+ (NEGATIVE); Nitrite Urine UA POSITIVE (Negative); Occult Blood Urine UA 3+ (Negative); Protein Urine UA 3+ (Negative); Specific Gravity Urine UA 1.025 (1.000-1.035)
[2025-01-28 15:19] LABS: Appearance Urine UA TURBID; Color Urine UA RED
[2025-01-28 15:21] LABS: Urine Volume 10mL (spun)
[2025-01-28 15:23] LABS: Bacteria Urine Many (>30); Culture Indicated Urine Specimen Cultured; RBC Urine >100/HPF (0-5/HPF); Squamous Epithelial Cell Urine None Seen (0-5/HPF); WBC Urine 10-30/HPF (0-5/HPF)
== END ==
PROVIDERS: Visit Provider Urology
DX: R31.0 Gross hematuria (principal)
CPT/HCPCS: 81001; 87086

== ENCOUNTER 2025-02-17 06:15 | Day surgery (SDC) | payer MEDICARE, SELFPAY ==
[2025-02-10 13:32] VITALS: BMI 34.7
[2025-02-17] VITALS (11 sets, daily range): BP systolic 118–150; BP diastolic 75–93; PULSE 83–116; RESP 16–23; TEMP 36.2–37; O2SAT 92–98; BMI 34.4
--- NOTE | 2025-02-17 | PATH_ITS ---
[facility] Accession Number: [id number] No. of containers..01 Tissue . 01 Material submitted: . bladder - BLADDER MASS . 01 Diagnosis: BLADDER MASS, TRANSURETHRAL RESECTION: Papillary urothelial carcinoma, high grade. Depth of invasion: Noninvasive. Lymphovascular invasion: Not identified. Muscularis propria: Not present in the sample submitted. MRV 02/20/2025 1740 Local . 01 Comment: As part of ongoing clinical quality assurance associate, selected slides from this case have also been reviewed by Dr. Ed Jaime, who agrees with the interpretation. . 01 Electronically signed: . Jane Lo MD, Pathologist NPI- [id number] . 01 Gross description: . Received in formalin with two identifiers and bladder mass, are multiple ayers spongy friable soft tissue fragments admixed with a small amount of hemorrhagic material aggregating to 7.3 x 6.5 x 2.0 cm. Several yellow irregular calculi are identified ranging from 0.5 to 1.0 cm in greatest dimension. Approximately 50% of the specimen is submitted in A1-A7. ([id number]) /MRV 02/19/2025 1538 Local . 01 Pathologist provided ICD-10: C67.9 . 01 CPT . 532499 Specimen Comment: A courtesy copy of this report has been sent to [facility] Pathology Performed at: [address] [address], [place], [place] [id number] MD Rex Szymanski MD Phone: [phone]
--- NOTE | 2025-02-17 06:42 | EKG_ITS ---
[address] [address] Test Date: 2025-02-17 Pat Name: Elmer Bey Department: Room: Gender: Male Tear Down Man: [place] LEE : 1945 Requested By: Order Number: [id number] Reading MD: Jarett Cano MD Measurements Intervals [place] Rate: 75 P: 34 AR: 188 QRS: 12 QRSD: 108 T: 34 QT: 400 QTc: 446 Interpretive Statements Poor data quality, interpretation may be adversely affected Normal sinus rhythm Cannot rule out Anterior infarct , age undetermined Electronically Signed On 02-17-2025 7:15:55 PDT by Jarett Cano MD
[2025-02-17] MEDS: LACTATED RINGERS 1,000 ML 42 ML IV ×2 (06:45→12:33)
[2025-02-17] MEDS: ACETAMINOPHEN 325 MG TABLET 975 MG PO (06:57)
--- NOTE | 2025-02-17 07:34 | PM.PREOP ---
Pre-operative Note COVID-19 COVID-19 status: Not tested Interval Note History & Physical reviewed/Exam performed by Physician: Yes Changes to H&P: No
[2025-02-17] MEDS: CEFAZOLIN 2 GM/100 ML PREMIX 100 ML IV (07:58)
--- NOTE | 2025-02-17 08:12 | SUR.OPER ---
Lithotomy on padded OR bed, head on pillow, arms secured on padded arm boards at <90 degrees abduction. Legs secured in padded yellow fins stirrups.
[2025-02-17] MEDS: LACTATED RINGERS 1,000 ML 21 ML IV (09:33)
--- NOTE | 2025-02-17 10:46 | P.OP_ITS ---
Operative Date/Time/Diagnoses Date of procedure: 02/17/25 Time of procedure: 08:00 Pre-op diagnosis: Bladder mass Post-op diagnosis: same Procedure & Clinicians Procedure: Cystoscopy Transurethral resection of bladder tumor Same procedure as scheduled: Yes Indications: 79 y/o M w/ gross hematuria who was noted to have a 4.5cm solid bladder mass concerning for urothelial cell carcinoma. Surgeon: Callum Osborn Click Yes if Unassisted: Yes Anesthesia Type: General Operative Notes Findings: Large bladder mass at dome of bladder Closure Type: not applicable Specimen(s): other (bladder mass) Applied: catheter Estimated Blood Loss (mL): 75 Procedure in detail: Patient was identified in the preoperative holding area and consent confirmed. He was then brought to the operating room where general anesthesia was induced. He was then placed in the low lithotomy position. He was then prepped and draped in the usual sterile fashion. A surgical timeout was conducted and all were in agreement. Access to the bladder was obtained via a 21Fr cystoscope. Complete cystoscopy was then performed using a 30 and 70 degree lens. A 5cm papillary mass was noted to arise from the right side of his bladder dome. Bilateral ureteral orifices were visualized and noted to be orthotopic in nature. No other concerning lesions were appreciated. The cystoscope was then removed and his urethral meatus was serially dilated using Jeremy sounds from 22Fr to 30Fr. The 26Fr resectoscope with visual obturator was then advanced through his urethra and into his bladder. The working element with Gyrus loop was then assembled and passed through the resectoscope and into the bladder. The mass was then resected for more than an hour and the location made it very difficult to reach. Therefore, the resectoscope was removed and the long 26Fr resectoscope was in serted into the bladder. The remainder of the mass was then resected to its base. The resection bed was then fulgurated. Bilateral ureteral orifices were intact at case end. All bladder specimens were then manually evacuated from the bladder using the resectoscope. Hemostasis was evaluated and noted to be excellent at case end. An 18Fr deleon was then inserted into the bladder at case end, 10cc of sterile water was used for balloon insufflation. Anesthesia was reversed, he was extubated in the OR and transferred to the PACU in stable condition for recovery. Complications: none Post-operative Condition: stable Disposition: PACU Plan for aftercare: Discharge home from PACU with deleon catheter for a few days.
--- NOTE | 2025-02-17 11:49 | SUR.PHASEII ---
Called into OR to notify Dr. Rosales patient's HR 110 and BP 119/75. Patient denied pain, reported feeling the need to void. VVO 200ml IV fluid bolus. Also received telephone order pyridium 200mg and oxybutinin 5 mg now from [facility] per Dr. Osborn.
[2025-02-17] MEDS: OXYBUTYNIN 5 MG TABLET PO (12:08)
[2025-02-17] MEDS: PHENAZOPYRIDINE 100 MG TABLET 200 MG PO (12:08)
--- NOTE | 2025-02-17 12:34 | SUR.PHASEII ---
Patient with very minimal urine output in deleon catheter. No distress noted. states that patient rarely drinks very much liquid at home except coffee and diet pepsi. Will continue to monitor patient's output prior to discharge.
--- NOTE | 2025-02-17 13:06 | SUR.PHASEII ---
Dr Osborn at bedside to evalute urine output. Per Dr Osborn, santos to infuse remaining IV fluid. Dr Osborn will be back to evaluate and will flush catheter prior to discharge. Santos to send patient home with a leg bag.
--- NOTE | 2025-02-17 13:54 | SUR.PHASEII ---
Discharged patient home in stable condition with . Switched large deleon bag over to leg bag; patient and both comfortable with catheter care. Instructed to follow up with Dr Osborn on as already scheduled. All belongings returned to patient.
== END 2025-02-17 13:58 | disposition home or self-care (01) ==
PROVIDERS: PCP Family Medicine; Referring Provider Urology; Visit Provider Urology
PROC: 0TBB8ZZ Excision of Bladder, Via Natural or Artificial Opening Endoscopic (ICD-10-PCS; CPT 52235; principal; 2025-02-17 07:45)
DX: C67.9 Malignant neoplasm of bladder, unspecified (principal); Z87.891 Personal history of nicotine dependence; R39.15 Urgency of urination; R35.0 Frequency of micturition; R39.12 Poor urinary stream
CPT/HCPCS: 52235; 93005; 93010; J0690; J1100; J2405; J2704; J3010

== ENCOUNTER → 2025-02-19 12:00 | Outpatient (CLI) | payer MEDICARE, SELFPAY | PROVIDERS: PCP Family Medicine; Visit Provider Urology | DX: R31.0 Gross hematuria (principal); N32.89 Other specified disorders of bladder | CPT/HCPCS: 87086 ==

== ENCOUNTER → 2025-03-02 11:11 | Outpatient (CLI) | payer MEDICARE, SELFPAY | PROVIDERS: PCP Family Medicine; Visit Provider Urology | DX: N40.1 Benign prostatic hyperplasia with lower urinary tract symptoms (principal) | CPT/HCPCS: 87086 ==

== ENCOUNTER → 2025-03-12 08:46 | Outpatient (CLI) | payer MEDICARE, SELFPAY ==
[2025-03-12 10:30] LABS: C-Reactive Protein Quant < 0.5 mg/dL (<1.0); Uric Acid 7.3 mg/dL (3.5-8.5)
== END ==
PROVIDERS: PCP Family Medicine; Referring Provider Family Medicine; Visit Provider Family Medicine
DX: M10.9 Gout, unspecified (principal)
CPT/HCPCS: 36415; 84550; 86140

== ENCOUNTER 2025-03-20 06:49 | Day surgery (SDC) | payer MEDICARE, SELFPAY ==
[2025-03-13 13:40] VITALS: BMI 34.7
[2025-03-20] VITALS (7 sets, daily range): BP systolic 111–146; BP diastolic 66–78; PULSE 73–93; RESP 14–17; TEMP 36.1–36.6; O2SAT 92–98; BMI 34.7
--- NOTE | 2025-03-20 | PATH_ITS ---
[facility] Accession Number: [id number] No. of containers..01 Tissue . 01 Material submitted: . bladder - BLADDER DEEP MARGIN . 01 Diagnosis: BLADDER, DEEP MARGIN, BIOPSIES: Urothelial mucosa and detrusor muscle with prominent surgical site changes. Negative for in situ and invasive carcinoma. MRV 03/26/2025 1346 Local . 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 Residual carcinoma is not seen in the provided samples. . 01 Electronically signed: . Zoe Florence DO, Pathologist NPI- [id number] . 01 Gross description: . BLADDER DEEP MARGIN: Received in formalin are 2 fragment(s) of ayers, soft tissue measuring 0.4 x 0.3 x 0.3 cm to 0.8 x 0.4 x 0.4 cm submitted entirely in 1 cassette(s) /PAOLA 03/24/2025 1857 Local . 01 Pathologist provided ICD-10: C67.9 . 01 CPT . 478608 Specimen Comment: A courtesy copy of this report has been sent to [facility] Pathology Performed at: [address] [facility] [address], [place], [place] [id number] MD Rex Szymanski MD Phone: [phone]
[2025-03-20] MEDS: LACTATED RINGERS 1,000 ML 21 ML IV (08:12)
--- NOTE | 2025-03-20 08:57 | PM.PREOP ---
Pre-operative Note COVID-19 COVID-19 status: Not tested Interval Note History & Physical reviewed/Exam performed by Physician: Yes Changes to H&P: No
[2025-03-20] MEDS: levoFLOXacin 500 MG/100 ML PIGGYBACK 100 MG IV (09:20)
--- NOTE | 2025-03-20 09:40 | SUR.OPER ---
Lithotomy on padded OR bed, head on pillow, arms secured on padded arm boards at <90 degrees abduction. Legs secured in padded yellow fins stirrups.
--- NOTE | 2025-03-20 10:10 | P.OP_ITS ---
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 He is now s/p a TURBT on 17 Feb 2025 and his pathology was notable for HG Ta UCC, >4.5 cm in greatest diameter. Unfortunately, muscular propria was not present in his specimen. Therefore, discussed that per AUA guidelines, he should undergo a repeat TURBT to ensure that his disease is not muscle invasive. Surgeon: Callum Osborn Click Yes if Unassisted: Yes Anesthesia Type: General Operative Notes Findings: Previous resection site well-healed, no residual mass present Specimen(s): other (bladder mass, deep margin) Estimated Blood Loss (mL): 2 Blood products transfused: none Procedure in detail: Patient was identified in the preoperative holding area and consent confirmed. He was then brought to the operating room where general anesthesia was induced. He was then placed in the low lithotomy position. He was then prepped and draped in the usual sterile fashion. A surgical timeout was conducted and all were in agreement. Access to the bladder was obtained via a 21Fr cystoscope. Complete cystoscopy was then performed using a 30 and 70 degree lens. His previous resection site was well-healed with no residual mass appreciated. Bilateral ureteral orifices were visualized and noted to be orthotopic in nature. No other concerning lesions were appreciated. The cystoscope was then removed and his urethral meatus was serially dilated using Jeremy sounds from 22Fr to 30Fr. The 26Fr resectoscope with visual obturator was then advanced through his urethra and into his bladder. The working element with Gyrus loop was then assembled and passed through the resectoscope and into the bladder. Two deep margins were then taken from the previous resection site and submitted for pathology as deep margin. The resection bed was then fulgurated. Hemostasis was evaluated and no yaniv to be excellent at case end. An 18Fr deleon was then inserted into the bladder at case end, 10cc of sterile water was used for balloon insufflation. Anesthesia was reversed, he was extubated in the OR and transferred to the PACU in stable condition for recovery. Complications: none Post-operative Condition: stable Disposition: PACU Plan for aftercare: Discharge home from PACU. Will return to Urology clinic on 23 March 2025 to have his deleon catheter removed.
== END 2025-03-20 11:34 | disposition home or self-care (01) ==
PROVIDERS: PCP Family Medicine; Referring Provider Urology; Visit Provider Urology
PROC: 0TBB8ZZ Excision of Bladder, Via Natural or Artificial Opening Endoscopic (ICD-10-PCS; principal; 2025-03-20 09:15)
DX: C67.9 Malignant neoplasm of bladder, unspecified (principal)
CPT/HCPCS: J0330; J1956; J2405; J2704; J3010

== ENCOUNTER 2025-03-23 17:03 | Inpatient (IN) | payer MEDICARE, SELFPAY ==
[2025-03-23] VITALS (17 sets, daily range): BP systolic 79–108; BP diastolic 42–58; PULSE 85–109; RESP 18–22; TEMP 36.6; O2SAT 90–95; BMI 34.2; BMI 34.7
--- NOTE | 2025-03-23 17:28 | DI.RAD.S_ITS ---
PROCEDURE: XR CHEST 1V INDICATIONS: suspected sepsis TECHNIQUE: One view of the chest was acquired. COMPARISON: None. FINDINGS: Surgical changes and devices: None. Lungs and pleura: Lungs are clear. No pleural effusions or pneumothorax. Mediastinum: Mediastinal contours appear normal. Heart size is enlarged. Bones and chest wall: No suspicious bony lesions. Overlying soft tissues appear unremarkable. IMPRESSION: Cardiomegaly. No definite focal infiltrate. No pleural effusion or pneumothorax. Dictated by: Julio C Crow M.D. on 03/23/2025 at 18:04 Approved by: Julio C Crow M.D. on 03/23/2025 at 18:04
--- NOTE | 2025-03-23 17:41 | EKG_ITS ---
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
[2025-03-23 17:45] LABS: Add Manual Diff / Slide Review NO; Basophils Absolute Auto 0 /uL (0-100); Basophils Percent Auto 0.2 % (0-2); Eosinophils Absolute Auto 0 /uL (0-450); Hematocrit 33.7 % (41-53); Hemoglobin 11.1 g/dL (13.5-17.5); Lymphocytes Absolute Auto 100 /uL (1100-4500); Lymphocytes Percent Auto 0.5 % (25-40); Mean Corpuscular HGB Conc 32.9 % (30-36); Mean Corpuscular Hemoglobin 29.1 PG (26-34); Mean Corpuscular Volume 88.4 fL (80-100); Monocytes Absolute Auto 200 /uL (0-900); Monocytes Percent Auto 1.6 % (3-14); Neutrophils Absolute Auto 14400 /uL (1500-7000); Neutrophils Percent Auto 97.7 % (50-75); Platelet Count 290 X10^3/uL (150-400); Red Blood Cell Count 3.81 X10^6/uL (4.5-5.9); White Blood Cell Count 14.7 X10^3/uL (4.5-11.0)
[2025-03-23] MEDS: SODIUM CHLORIDE 0.9% 1,000 ML 1000 ML IV (17:54)
[2025-03-23 17:55] LABS: INR 1.2 (0.9-1.3); Prothrombin Time 13.9 SECONDS (9.4-12.5)
[2025-03-23 17:58] LABS: Alanine Aminotransferase 22 IU/L (<50); Albumin Globulin Ratio 1.4 (1.0-2.8); Alkaline Phosphatase 69 U/L (38-126); Aspartate Aminotransferase 34 IU/L (17-59); BUN Creatinine Ratio 20.3 (6-22); Bilirubin Total 0.9 mg/dL (0.2-1.3); Blood Urea Nitrogen 28 mg/dL (9-20); Calcium 9.4 mg/dL (8.4-10.2); Carbon Dioxide 27 mmol/L (22-32); Chloride 101 mmol/L (98-107); Estimated Glomerular Filt Rate 51 mL/min (>60); Globulin 2.9 g/dL (1.7-4.1); Glucose 160 mg/dL (70-99); HEMOLYSIS < 15 (0-50); Lipase 41 U/L (23-300); PTT Partial Thromboplastin Tim 27 SECONDS (25.1-36.5); Potassium 4.4 mmol/L (3.4-5.1); Sodium 136 mmol/L (137-145); Total Protein 6.9 g/dL (6.3-8.2)
[2025-03-23 17:59] LABS: Lactate (Lactic Acid) 3.7 mmol/L (0.7-2.1)
[2025-03-23 18:16] LABS: Procalcitonin 3.24 ng/mL (<0.5)
[2025-03-23] MEDS: SODIUM CHLORIDE 0.9% 1,000 ML 2000 ML IV (18:33)
--- NOTE | 2025-03-23 18:50 | ED.GENADULT ---
HPI - General Adult General Chief complaint: Weakness Stated complaint: n/v and fell Time Seen by Provider: 03/23/25 18:09 Source: family Mode of arrival: Wheelchair History of Present Illness HPI narrative: 79-year-old male reports history of bladder cancer, followed by local urologist Dr. Osborn, had some kind of surgery he believes 5 weeks ago, urinary catheter had been in place for some unclear duration of time, went to clinic Urology this morning and had catheter pulled, had an appointment at 3:45 p.m. but apparently missed this, was told to come to in the emergency department. Patient denies pain in suprapubic area and other areas abdomen, no discomfort right upper quadrant or left upper quadrant or central, right lower quadrant or left lower quadrant. No back or flank pain discomfort. No chest pain or shortness of breath. No headache or neck pain. He does not feel feverish. He had nausea and single episode of nonbloody emesis this afternoon. Onset (ago): minute(s) Related Data Home Medications ?Medication ?Instructions ?Recorded ?Confirmed citalopram 40 mg tablet 20 mg PO QDAY ##0 01/14/18 03/24/25 metoprolol succinate 25 mg 25 mg PO DAILY 03/12/25 03/24/25 tablet,extended release 24 hr naproxen sodium 220 mg capsule 220 mg PO BID PRN Pain, Moderate 03/13/25 03/24/25 (Aleve) Previous Rx's ?Medication ?Instructions ?Recorded lisinopril 10 mg tablet 10 mg PO QDAY #90 tabs 03/10/25 simvastatin 10 mg tablet 10 mg PO QDAY #90 tabs 03/10/25 colchicine 0.6 mg tablet 1.2 mg (2 x 0.6 mg) PO DAILY #10 03/23/25 tabs prednisone 20 mg tablet 40 mg (2 x 20 mg) PO DAILY #10 tabs 03/23/25 Allergies Allergy/AdvReac Type Severity Reaction Status Date / Time Penicillins (PENICILLINS) Allergy Unknown Verified 03/20/25 08:13 tamsulosin AdvReac Severe Orthostatic Verified 03/20/25 08:13 hypotension. Patient History Medical History (Updated 03/23/25 @ 21:19 by Salbador Laird MD) HLD (hyperlipidemia) HTN (hypertension) BPH (benign prostatic hyperplasia) Anxiety Rib pain Surgical History (Updated 03/13/25 @ 12:59 by Reny Cunningham RN) H/O transurethral resection of bladder tumor (TURBT) (02/17/25) Hx of cholecystectomy Social History (Updated 03/12/25 @ 07:30 by Radha Espinosa MA) household members: spouse alcohol intake: never alcohol intake frequency: 0-2 drinks per day Exam Narrative Exam Narrative: GENERAL: Well-developed patient, in mild distress. HEAD: Atraumatic. Normocephalic. EYES: Pupils equal round and reactive. Extraocular motions intact. No scleral icterus. No injection or drainage. ENT: Nose without bleeding, purulent drainage. Throat without erythema, tonsillar hypertrophy or exudate. Airway patent. NECK: Trachea midline. Non tender CARDIOVASCULAR: Regular rate and rhythm without murmurs, gallops, or rubs. RESPIRATORY: Clear to auscultation. Breath sounds equal bilaterally. No wheezes, rales, or rhonchi. GASTROINTESTINAL: Abdomen soft, non-tender, nondistended. EXTREMITIES: No edema or joint tenderness. BACK: Nontender without deformity or crepitance. No flank tenderness. NEURO: AOx3. Motor functions grossly nonfocal. SKIN: No rash or erythema of visible areas Initial Vital Signs Initial Vital Signs: Vital Signs Temperature 97.9 F 03/23/25 17:16 Pulse Rate 109 H 03/23/25 17:16 Respiratory Rate 18 03/23/25 17:16 Blood Pressure 79/42 L 03/23/25 17:16 Pulse Oximetry 90 L 03/23/25 17:16 Oxygen Delivery Method Room Air 03/23/25 17:16 Course Orders Ordered: ED Orders 03/23/25 19:50 Covid-19 + FLU A/B + RSV - PCR Stat Urinalysis and Microscopic Stat Urine Culture Stat 03/23/25 21:13 Lactate (Lactic Acid) Stat Acetaminophen (Acetaminophen 325 Mg Tablet) 975 mg PO Q6H PRN PRN Reason: Pain, Mild (1-3), fever Atorvastatin Calcium (Atorvastatin 20 Mg Tablet) 10 mg PO DAILY JOSE RAMON Citalopram Hydrobromide (Citalopram 10 Mg Tablet) 20 mg PO DAILY [facility] Enoxaparin Sodium (Enoxaparin 30 Mg/0.3 Ml Syringe) 30 mg SUBCUT DAILY [facility] Lactated Ringer's (Lactated Ringers) 1,000 mls @ 100 mls/hr IV CONT JOSE RAMON Ceftriaxone Sodium 2,000 mg/ (Sodium Chloride) 100 mls @ 200 mls/hr IV Q24H JOSE RAMON Naloxone HCl (Naloxone 0.4 Mg/Ml Vial) 0.2 mg IV Q2MIN PRN PRN Reason: Opiate Reversal Ondansetron HCl (Ondansetron 4 Mg/2 Ml Inj) 4 mg IV NOW PRN PRN Reason: Nausea And Vomiting Ondansetron HCl (Ondansetron 4 Mg Odt) 4 mg PO NOW PRN PRN Reason: Nausea And Vomiting Discontinued Medications Sodium Chloride (Normal Saline 0.9%) 1,000 mls @ 1,000 mls/hr IV BOLUS ONE Stop: 03/23/25 18:27 Last Infusion: 03/23/25 20:16 Dose: Infused Documented By: Infusion: 03/23/25 18:32 Dose: Infused Documented By: Admin: 03/23/25 17:54 Dose: 1,000 mls/hr Documented By: RB Sodium Chloride (Normal Saline 0.9%) 1,000 mls @ 2,000 mls/hr IV BOLUS ONE Stop: 03/23/25 18:38 Last Infusion: 03/23/25 19:24 Dose: Infused Documented By: Admin: 03/23/25 18:33 Dose: 2,000 mls/hr Documented By: MELODY Ceftriaxone Sodium 1,000 mg/ (Sodium Chloride) 100 mls @ 200 mls/hr IV NOW ONE Stop: 03/23/25 18:10 Last Infusion: 03/23/25 20:16 Dose: Infused Documented By: Admin: 03/23/25 19:23 Dose: 200 mls/hr Documented By: Lactated Ringer's (Lactated Ringers) 1,000 mls @ 1,000 mls/hr IV BOLUS ONE Stop: 03/23/25 23:18 Last Infusion: 03/23/25 23:43 Dose: Infused Documented By: Admin: 03/23/25 22:23 Dose: 1,000 mls/hr Documented By: ALYSSIA Lactated Ringer's (Lactated Ringers) 1,000 mls @ 1,000 mls/hr IV BOLUS ONE Stop: 03/24/25 01:30 Vital Signs Vital signs: Vital Signs - 8 hr 03/23/25 21:30 03/23/25 22:13 03/23/25 22:13 Pulse Rate 88 85 Respiratory Rate Blood Pressure 98/55 L Pulse Oximetry 92 95 03/23/25 22:14 03/23/25 22:14 03/23/25 22:17 Pulse Rate 85 Respiratory Rate 21 Blood Pressure 86/50 L 86/47 L Pulse Oximetry 93 03/23/25 22:17 03/23/25 22:20 03/23/25 22:20 Pulse Rate 90 85 Respiratory Rate Blood Pressure 95/55 L Pulse Oximetry 92 92 03/23/25 22:30 03/23/25 22:30 03/23/25 22:40 Pulse Rate 86 Respiratory Rate Blood Pressure 100/51 L 105/58 L Pulse Oximetry 92 03/23/25 22:40 Pulse Rate 91 H Respiratory Rate Blood Pressure Pulse Oximetry 92 Medical Decision Making Lab Data Lab results reviewed: Yes I reviewed the patient's lab results. Lab results narrative: White blood cell count 28904, hemoglobin 11.1, platelets adequate. Glucose 160. BUN 28 with creatinine 1.34. Serum CO2 27. Sodium 136, potassium 4.4 liver functions and lipase normal. Procalcitonin 3.24. 03/23/25 17:37 03/23/25 17:37 Labs: Lab Results 03/23/25 03/23/25 03/23/25 Range/Units 17:37 19:30 19:50 WBC 14.7 H (4.5-11.0) X10^3/uL RBC 3.81 L (4.5-5.9) X10^6/uL Hgb 11.1 L (13.5-17.5) g/dL Hct 33.7 L (41-53) % MCV 88.4 (80-100) fL MCH 29.1 (26-34) PG MCHC 32.9 (30-36) % RDW 14.0 (11.6-14.8) % Plt Count 290 (150-400) X10^3/uL Neut % (Auto) 97.7 H (50-75) % Lymph % (Auto) 0.5 L (25-40) % [place] % (Auto) 1.6 L (3-14) % Eos % (Auto) 0.0 L (2-4) % Baso % (Auto) 0.2 (0-2) % Neut # (Auto) 30426 H (8580-3525) /uL Lymph # (Auto) 100 L (4844-2115) /uL [place] # (Auto) 200 (0-900) /uL Eos # (Auto) 0 (0-450) /uL Baso # (Auto) 0 (0-100) /uL PT 13.9 H (9.4-12.5) SECONDS INR 1.2 (0.9-1.3) APTT 27 (25.1-36.5) SECONDS Sodium 136 L (137-145) mmol/L Potassium 4.4 (3.4-5.1) mmol/L Chloride 101 (98-107) mmol/L Carbon Dioxide 27 (22-32) mmol/L BUN 28 H (9-20) mg/dL Creatinine 1.38 H (0.66-1.25) mg/dL Estimated GFR 51 L (>60) mL/min BUN/Creatinine Ratio 20.3 (6-22) Glucose 160 H (70-99) mg/dL Lactate 3.7 H 3.1 H (0.7-2.1) mmol/L Calcium 9.4 (8.4-10.2) mg/dL Total Bilirubin 0.9 (0.2-1.3) mg/dL AST 34 (17-59) IU/L ALT 22 (<50) IU/L Alkaline Phosphatase 69 (38-126) U/L Total Protein 6.9 (6.3-8.2) g/dL Albumin 4.0 (3.5-5.0) g/dL Globulin 2.9 (1.7-4.1) g/dL Albumin/Globulin Ratio 1.4 (1.0-2.8) Lipase 41 (23-300) U/L Procalcitonin 3.24 H (<0.5) ng/mL Urine Color [place] Urine Appearance Clear Urine pH TNP Ur Specific [place] TNP Urine Protein TNP Urine Glucose (UA) TNP Urine Ketones TNP Urine Occult Blood TNP Urine Nitrate TNP Urine Bilirubin TNP Urine Urobilinogen TNP Ur Leukocyte Esterase TNP Urine RBC 1-5/hpf D (0-5/HPF) Urine WBC 5-10/hpf H (0-5/HPF) Ur Squamous Epith Cells 0-1 /hpf (0-5/HPF) Urine Bacteria Moderate (10-30) H (None) Hyaline Casts 1-5/lpf (None) Urine Mucus 2+ H (Negative) Ur Culture Indicated? Specimen cultured Vol Urine Centrifuged 10ml (spun) SARS-CoV-2 (PCR) Negative (Negative) Influenza A (RT-PCR) Flu a negative (NEGATIVE) Influenza B (RT-PCR) Flu b negative (NEGATIVE) RSV (PCR) Negative (Negative) 03/23/25 Range/Units 21:13 WBC (4.5-11.0) X10^3/uL RBC (4.5-5.9) X10^6/uL Hgb (13.5-17.5) g/dL Hct (41-53) % MCV (80-100) fL MCH (26-34) PG MCHC (30-36) % RDW (11.6-14.8) % Plt Count (150-400) X10^3/uL Neut % (Auto) (50-75) % Lymph % (Auto) (25-40) % [place] % (Auto) (3-14) % Eos % (Auto) (2-4) % Baso % (Auto) (0-2) % Neut # (Auto) (6144-3980) /uL Lymph # (Auto) (7262-7699) /uL [place] # (Auto) (0-900) /uL Eos # (Auto) (0-450) /uL Baso # (Auto) (0-100) /uL PT (9.4-12.5) SECONDS INR (0.9-1.3) APTT (25.1-36.5) SECONDS Sodium (137-145) mmol/L Potassium (3.4-5.1) mmol/L Chloride (98-107) mmol/L Carbon Dioxide (22-32) mmol/L BUN (9-20) mg/dL Creatinine (0.66-1.25) mg/dL Estimated GFR (>60) mL/min BUN/Creatinine Ratio (6-22) Glucose (70-99) mg/dL Lactate 2.6 H (0.7-2.1) mmol/L Calcium (8.4-10.2) mg/dL Total Bilirubin (0.2-1.3) mg/dL AST (17-59) IU/L ALT (<50) IU/L Alkaline Phosphatase (38-126) U/L Total Protein (6.3-8.2) g/dL Albumin (3.5-5.0) g/dL Globulin (1.7-4.1) g/dL Albumin/Globulin Ratio (1.0-2.8) Lipase (23-300) U/L Procalcitonin (<0.5) ng/mL Urine Color Urine Appearance Urine pH Ur Specific [place] Urine Protein Urine Glucose (UA) Urine Ketones Urine Occult Blood Urine Nitrate Urine Bilirubin Urine Urobilinogen Ur Leukocyte Esterase Urine RBC (0-5/HPF) Urine WBC (0-5/HPF) Ur Squamous Epith Cells (0-5/HPF) Urine Bacteria (None) Hyaline Casts (None) Urine Mucus (Negative) Ur Culture Indicated? Vol Urine Centrifuged SARS-CoV-2 (PCR) (Negative) Influenza A (RT-PCR) (NEGATIVE) Influenza B (RT-PCR) (NEGATIVE) RSV (PCR) (Negative) Imaging Data Chest x-ray: Radiologist's Impression: [address] [address] XRay Report Signed Patient: Elmer Bey MR#: [id number] : 1945 Acct:[id number] Age/Sex: 79 / M Date of Service: 03/23/25 Loc: Accession Number: [id number] Procedure: XR chest 1V Ordering Provider: Tanner Polanco MD PROCEDURE: XR CHEST 1V INDICATIONS: suspected sepsis TECHNIQUE: One view of the chest was acquired. COMPARISON: None. FINDINGS: Surgical changes and devices: None. Lungs and pleura: Lungs are clear. No pleural effusions or pneumothorax. Mediastinum: Mediastinal contours appear normal. Heart size is enlarged. Bones and chest wall: No suspicious bony lesions. Overlying soft tissues appear unremarkable. IMPRESSION: Cardiomegaly. No definite focal infiltrate. No pleural effusion or pneumothorax. Dictated by: Julio C Crow M.D. on 03/23/2025 at 18:04 Approved by: Julio C Crow M.D. on 03/23/2025 at 18:04 CT scan - abdomen/pelvis: Radiologist's Impression: [address] [address] [address] Scan Report Signed Patient: Elmer Bey MR#: [id number] : 1945 Acct:[id number] Age/Sex: 79 / M Date of Service: 03/23/25 Loc: ED Accession Number: [id number] Procedure: CT abdomen pelvis w con Ordering Provider: Salbador Laird MD PROCEDURE: CT ABDOMEN PELVIS W CON INDICATIONS: N/V recent catheter out, low BP TECHNIQUE: After the administration of intravenous contrast, axial sections acquired from the lung bases to the pubic symphysis. Coronal and sagittal reformats were performed. For radiation dose reduction, the following was used: automated exposure control, adjustment of mA and/or kV according to patient size. COMPARISON: [facility], CT, CT IVP A/P W/WO, 12/18/2024, 9:34. FINDINGS: Image quality: Diagnostic. Lower Chest: Bilateral infrahilar and lobe mediastinal lymph nodes. Mild cardiomegaly. ABDOMEN: Liver: Several scattered irregular, and mainly thin-walled, hypodensities throughout the liver. A coarse calcification suggestive prior granulomatous disease. No significant changes. Gallbladder: Surgically absent. Biliary ducts: Appropriate biliary tree caliber post cholecystectomy. Pancreas: Normal size and morphology without visible ductal dilatation or inflammation. Spleen: Size is within normal limits. Adrenal Glands: No adrenal nodules. Kidneys and Ureters: The kidneys are normal size, symmetric in enhancement, and without visible solid mass. Tiny cortical cyst arising in the right kidney. No hydronephrosis or nephrolithiasis. The proximal ureters are normal caliber. Both distal ureters are mildly dilated at the pelvic inlet. No stones. Stomach and Bowel: The stomach is predominantly decompressed. Small bowel loops are normal caliber. Normal quantity of solid stool in the colon. Normal appendix. Peritoneum: No abnormal intraperitoneal fluid. No free air. Ventral Wall: No significant ventral hernia. Abdominal Nodes: There is in the large lymph node in the gastrohepatic region measuring 1.5 cm in short axis , increased compared to prior. There has also been slight enlargement of flat portacaval lymph node measuring 1 cm short axis, . Other shotty rounded lymph nodes are present in the gastrohepatic/GE junction region and in the left periaortic retroperitoneum.. Vessels: The abdominal aorta, IVC, and portal vein are of normal caliber. Heavy abdominal aortic atherosclerotic calcification. PELVIS: Pelvic Organs: Mild prostatomegaly. Bladder: Urinary bladder is partially filled, and the wall is diffusely thickened with indistinct margins and mild perivesicular inflammation. Pelvic Nodes: Small bilateral lymph nodes. No bulky pelvic adenopathy. Miscellaneous: No inguinal hernias are seen. Bones: No aggressive osseous abnormality. IMPRESSION: Diffuse urinary bladder wall thickening and inflammation may be secondary to cystitis or iatrogenic due to radiation change depending on history. Mildly dilated distal ureters are chronic. Enlargement of upper abdominal lymph nodes and presence of periesophageal and bilateral infrahilar lymph nodes. These could be reactive or may indicate extension of metastatic disease. Dictated by: Chasity Mckeon M.D. on 03/23/2025 at 20:20 Approved by: Chasity Mckeon M.D. on 03/23/2025 at 20:32 ECG Data Attestation: I personally reviewed and interpreted this ECG as follows: Interpretation: 1741, sinus tachycardia with rate of 102, no obvious ST segment elevation or depression changes. MT 184, QRS 100, QTC 456. MDM Narrative Medical decision making narrative: 79-year-old male with history of bladder cancer, had urinary catheter removed or this morning clinic, had nausea and vomiting nonbloody single episode proximally 1:00 p.m., apparently missed his 3:45 p.m. scheduled appointment with Urology Dr. Osborn, referred here for further evaluation. Screening labs remarkable for leukocytosis, increased lactate, hypotension. Possible infection/sepsis. IV fluid bolus, blood cultures, urine/culture requested, IV ceftriaxone requested. Chest x-ray shows cardiomegaly, no infiltrates described. See radiology report. 1900, partial 1st IVNS bag infused, systolic blood pressure 115 improving. Urinalysis still pending. Urinalysis suspicious for infection. IV ceftriaxone given prior after urine and blood cultures requested. Blood pressure improved after fluid bolus. Repeat lactate pending. Consider admission. 2114, last BP 115/62, HR 89 2145, Lactate 2.6, decreased from 3.1, decreased from initial value 3.7. CT abdomen and pelvis results are still pending. CT abdomen pelvis. IMPRESSION: Diffuse urinary bladder wall thickening and inflammation may be secondary to cystitis or iatrogenic due to radiation change depending on history. Mildly dilated distal ureters are chronic. Enlargement of upper abdominal lymph nodes and presence of periesophageal and bilateral infrahilar lymph nodes. These could be reactive or may indicate extension of metastatic disease. See radiology report. UTI/sepsis, IV fluid 2 L infusing, lactate seems to be decreasing. IV ceftriaxone given prior. Imaging not suggestive of complex urinary tract infection, no obstructing stone, no abscess. We will contact hospitalist regarding admission. 2244, case discussed with hospitalist Dr. House who accepts patient for admission. Discharge Plan Departure Patient Disposition: Admitted As Inpatient Clinical Impression: Urinary tract infection, Sepsis associated hypotension Admit Date/Time: 03/23/25 22:41 Admit Provider: Alvin Epstein
--- NOTE | 2025-03-23 19:04 | DI.CT.S_ITS ---
PROCEDURE: CT ABDOMEN PELVIS W CON INDICATIONS: N/V recent catheter out, low BP TECHNIQUE: After the administration of intravenous contrast, axial sections acquired from the lung bases to the pubic symphysis. Coronal and sagittal reformats were performed. For radiation dose reduction, the following was used: automated exposure control, adjustment of mA and/or kV according to patient size. COMPARISON: [facility], CT, CT IVP A/P W/WO, 12/18/2024, 9:34. FINDINGS: Image quality: Diagnostic. Lower Chest: Bilateral infrahilar and lobe mediastinal lymph nodes. Mild cardiomegaly. ABDOMEN: Liver: Several scattered irregular, and mainly thin-walled, hypodensities throughout the liver. A coarse calcification suggestive prior granulomatous disease. No significant changes. Gallbladder: Surgically absent. Biliary ducts: Appropriate biliary tree caliber post cholecystectomy. Pancreas: Normal size and morphology without visible ductal dilatation or inflammation. Spleen: Size is within normal limits. Adrenal Glands: No adrenal nodules. Kidneys and Ureters: The kidneys are normal size, symmetric in enhancement, and without visible solid mass. Tiny cortical cyst arising in the right kidney. No hydronephrosis or nephrolithiasis. The proximal ureters are normal caliber. Both distal ureters are mildly dilated at the pelvic inlet. No stones. Stomach and Bowel: The stomach is predominantly decompressed. Small bowel loops are normal caliber. Normal quantity of solid stool in the colon. Normal appendix. Peritoneum: No abnormal intraperitoneal fluid. No free air. Ventral Wall: No significant ventral hernia. Abdominal Nodes: There is in the large lymph node in the gastrohepatic region measuring 1.5 cm in short axis 2/37, increased compared to prior. There has also been slight enlargement of flat portacaval lymph node measuring 1 cm short axis, /42. Other shotty rounded lymph nodes are present in the gastrohepatic/GE junction region and in the left periaortic retroperitoneum.. Vessels: The abdominal aorta, IVC, and portal vein are of normal caliber. Heavy abdominal aortic atherosclerotic calcification. PELVIS: Pelvic Organs: Mild prostatomegaly. Bladder: Urinary bladder is partially filled, and the wall is diffusely thickened with indistinct margins and mild perivesicular inflammation. Pelvic Nodes: Small bilateral lymph nodes. No bulky pelvic adenopathy. Miscellaneous: No inguinal hernias are seen. Bones: No aggressive osseous abnormality. IMPRESSION: Diffuse urinary bladder wall thickening and inflammation may be secondary to cystitis or iatrogenic due to radiation change depending on history. Mildly dilated distal ureters are chronic. Enlargement of upper abdominal lymph nodes and presence of periesophageal and bilateral infrahilar lymph nodes. These could be reactive or may indicate extension of metastatic disease. Dictated by: Chasity Mckeon M.D. on 03/23/2025 at 20:20 Approved by: Chasity Mckeon M.D. on 03/23/2025 at 20:32
[2025-03-23 19:18] LABS: Reflexed Lactate in 2 Hours Y
[2025-03-23] MEDS: cefTRIAXone 1,000 MG in SODIUM CHLORIDE 0.9% 100 ML 200 MG IV (19:23)
[2025-03-23 20:03] LABS: Lactate 2HR (Lactic Acid Rflx) 3.1 mmol/L (0.7-2.1)
[2025-03-23 20:10] LABS: Appearance Urine UA Clear; Color Urine UA Orange
[2025-03-23 20:13] LABS: Bacteria Urine Moderate (10-30); Culture Indicated Urine Specimen Cultured; Hyaline Casts Urine 1-5/LPF; Mucus Urine 2+ (Negative); RBC Urine 1-5/HPF (0-5/HPF); Squamous Epithelial Cell Urine 0-1 /HPF (0-5/HPF); Urine Volume 10mL (spun); WBC Urine 5-10/HPF (0-5/HPF)
[2025-03-23 20:38] LABS: COVID-19 CEPHEID 4-PLEX PCR Negative (Negative); Influenza A - CEPHEID Flu A NEGATIVE (NEGATIVE); Influenza B - CEPHEID Flu B NEGATIVE (NEGATIVE); Respiratory Syncytial Virus Negative (Negative)
[2025-03-23 21:46] LABS: Lactate (Lactic Acid) 2.6 mmol/L (0.7-2.1)
[2025-03-23] MEDS: LACTATED RINGERS 1,000 ML 1000 ML IV (22:23)
--- NOTE | 2025-03-23 22:31 | PC.NURSE ---
reports recent procedure and cath removal on Sunday by patient's urologist.
[2025-03-23 23:05] LABS: Reflexed Lactate in 2 Hours Y
[2025-03-23 23:32] LABS: Lactate 2HR (Lactic Acid Rflx) 2.9 mmol/L (0.7-2.1)
[2025-03-24] VITALS (9 sets, daily range): BP systolic 83–123; BP diastolic 48–66; PULSE 79–100; RESP 17–20; TEMP 36.9–38; O2SAT 91–95
--- NOTE | 2025-03-24 00:43 | P.HP_ITS ---
History of Present Illness History of Present Illness Date Patient Seen: 03/24/25 Time Patient Seen: 23:00 Chief complaint: n/v and fell Narrative: 79 y/o with PMH of BPH, bladder cancer, HTN, HLD, gout, anxiety, came to ED weak, after he fell, nauseated, after one emesis. Few days ago he had cystoscopy for 2nf TURBT, apparently, with urologist and earlier today he had his catheter removed. On arrival hypotensive, tachycatdic, CT showing thickened bladder, labs leukocytosis with Lt shift and elevated lactate. Started on antibioptic and IVFs and admitted to medicine with UTI, LIZBET and sepsis. [facility] Medical History (Updated 03/24/25 @ 05:42 by Alvin House MD) HLD (hyperlipidemia) HTN (hypertension) BPH (benign prostatic hyperplasia) Anxiety Rib pain Surgical History H/O transurethral resection of bladder tumor (TURBT) (02/17/25) Hx of cholecystectomy Social History household members: spouse alcohol intake: never Meds Home Medications and Allergies Home Medications ?Medication ?Instructions ?Recorded ?Confirmed ?Type citalopram 40 mg tablet 20 mg PO QDAY ##0 01/14/18 0 03/24/25 History lisinopril 10 mg tablet 10 mg PO QDAY #90 tabs 03/1003/24/25 Rx simvastatin 10 mg tablet 10 mg PO QDAY #90 tabs 03/1003/24/25 Rx metoprolol succinate 25 mg 25 mg PO DAILY 03/12/2508/08 History tablet,extended release 24 hr naproxen sodium 220 mg capsule 220 mg PO BID PRN Pain, Moderate 03/13/25 03/24/25 History (Aleve) colchicine 0.6 mg tablet 1.2 mg (2 x 0.6 mg) PO DAILY #10 03/23/25 03/24/25 Rx tabs prednisone 20 mg tablet 40 mg (2 x 20 mg) PO DAILY # 10 tabs 03/23/25 03/24/25 Rx Allergies Allergy/AdvReac Type Severity Reaction Status Date / Time Penicillins (PENICILLINS) Allergy Unknown Verified 03/20/25 08:13 tamsulosin AdvReac Severe Orthostatic Verified 03/20/25 08:13 hypotension. Review of Systems Review of Systems Narrative: General - generalized weakness UG - w/o dysuria or flank / abdominal pain CVS - w/o chest pain or palpitations RS - chronic shortness of breath, mainly exertional Exam Vital Signs (past 8 hours): - 03/23/25 17:16 03/23/25 21:30 03/23/25 22:13 Temperature 97.9 F Pulse Rate 109 H 88 85 Respiratory Rate 18 Blood Pressure 79/42 L Pulse Oximetry 90 L 92 95 Oxygen Delivery Method Room Air 03/23/25 22:13 03/23/25 22:14 03/23/25 22:14 Temperature Pulse Rate 85 Respiratory Rate 21 Blood Pressure 98/55 L 86/50 L Pulse Oximetry 93 Oxygen Delivery Method 03/23/25 22:17 03/23/25 22:17 03/23/25 22:20 Temperature Pulse Rate 90 Respiratory Rate Blood Pressure 86/47 L 95/55 L Pulse Oximetry 92 Oxygen Delivery Method 03/23/25 22:20 03/23/25 22:30 03/23/25 22:30 Temperature Pulse Rate 85 86 Respiratory Rate Blood Pressure 100/51 L Pulse Oximetry 92 92 Oxygen Delivery Method 03/23/25 22:40 03/23/25 22:40 03/23/25 22:50 Temperature Pulse Rate 91 H Respiratory Rate Blood Pressure 105/58 L 103/51 L Pulse Oximetry 92 Oxygen Delivery Method 03/23/25 22:50 03/23/25 23:00 03/23/25 23:00 Temperature Pulse Rate 92 H 91 H Respiratory Rate Blood Pressure 96/52 L Pulse Oximetry 94 93 Oxygen Delivery Method 03/23/25 23:10 03/23/25 23:10 03/23/25 23:11 Temperature Pulse Rate 92 H 92 H Respiratory Rate 22 Blood Pressure 96/54 L 96/54 L Pulse Oximetry 94 94 Oxygen Delivery Method Room Air 03/23/25 23:20 03/23/25 23:20 03/23/25 23:30 Temperature Pulse Rate 91 H Respiratory Rate Blood Pressure 100/56 L 105/55 L Pulse Oximetry 93 Oxygen Delivery Method 03/23/25 23:30 03/23/25 23:40 03/23/25 23:42 Temperature Pulse Rate 92 H 92 H Respiratory Rate Blood Pressure 108/51 L Pulse Oximetry 93 92 Oxygen Delivery Method 03/23/25 23:42 03/23/25 23:50 03/23/25 23:50 Temperature Pulse Rate 92 H 90 Respiratory Rate 19 Blood Pressure 105/53 L Pulse Oximetry 93 94 Oxygen Delivery Method Room Air 03/24/25 00:00 03/24/25 00:00 03/24/25 00:23 Temperature 100.4 F H Pulse Rate 90 91 H Respiratory Rate 20 17 Blood Pressure 106/53 L 92/55 L Pulse Oximetry 93 91 Oxygen Delivery Method Room Air Oxygen Delivery Method Room Air Narrative Exam Narrative: General - in no distress CVS - RRR RS - normal respiratory effort GI - lower abdominal tenderness Objective ECG Impression: Sinus tachycardia [address] scan - abdomen: Radiologist's impression: Diffuse urinary bladder wall thickening and inflammation may be secondary to cystitis or iatrogenic due to radiation change depending on history. Mildly dilated distal ureters are chronic. Enlargement of upper abdominal lymph nodes and presence of periesophageal and bilateral infrahilar lymph nodes. These could be reactive or may indicate extension of metastatic disease Chest x-ray: Radiologist's impression: Cardiomegally Labs 03/23/25 17:37 03/23/25 17:37 Labs: Laboratory Results - last 24 hr 03/23/25 03/23/25 03/23/25 17:37 19:30 19:50 WBC 14.7 H RBC 3.81 L Hgb 11.1 L Hct 33.7 L MCV 88.4 MCH 29.1 MCHC 32.9 RDW 14.0 Plt Count 290 Neut % (Auto) 97.7 H Lymph % (Auto) 0.5 L [place] % (Auto) 1.6 L Eos % (Auto) 0.0 L Baso % (Auto) 0.2 Neut # (Auto) 01497 H Lymph # (Auto) 100 L [place] # (Auto) 200 Eos # (Auto) 0 Baso # (Auto) 0 PT 13.9 H INR 1.2 APTT 27 Sodium 136 L Potassium 4.4 Chloride 101 Carbon Dioxide 27 BUN 28 H Creatinine 1.38 H Estimated GFR 51 L BUN/Creatinine Ratio 20.3 Glucose 160 H Lactate 3.7 H 3.1 H Calcium 9.4 Total Bilirubin 0.9 AST 34 ALT 22 Alkaline Phosphatase 69 Total Protein 6.9 Albumin 4.0 Globulin 2.9 Albumin/Globulin Ratio 1.4 Lipase 41 Procalcitonin 3.24 H Urine Color [place] Urine Appearance Clear Urine pH TNP Ur Specific [place] TNP Urine Protein TNP Urine Glucose (UA) TNP Urine Ketones TNP Urine Occult Blood TNP Urine Nitrate TNP Urine Bilirubin TNP Urine Urobilinogen TNP Ur Leukocyte Esterase TNP Urine RBC 1-5/hpf D Urine WBC 5-10/hpf H Ur Squamous Epith Cells 0-1 /hpf Urine Bacteria Moderate (10-30) H Hyaline Casts 1-5/lpf Urine Mucus 2+ H Ur Culture Indicated? Specimen cultured Vol Urine Centrifuged 10ml (spun) SARS-CoV-2 (PCR) Negative Influenza A (RT-PCR) Flu a negative Influenza B (RT-PCR) Flu b negative RSV (PCR) Negative 03/23/25 03/23/25 21:13 23:15 WBC RBC Hgb Hct MCV MCH MCHC RDW Plt Count Neut % (Auto) Lymph % (Auto) [place] % (Auto) Eos % (Auto) Baso % (Auto) Neut # (Auto) Lymph # (Auto) [place] # (Auto) Eos # (Auto) Baso # (Auto) PT INR APTT Sodium Potassium Chloride Carbon Dioxide BUN Creatinine Estimated GFR BUN/Creatinine Ratio Glucose Lactate 2.6 H 2.9 H Calcium Total Bilirubin AST ALT Alkaline Phosphatase Total Protein Albumin Globulin Albumin/Globulin Ratio Lipase Procalcitonin Urine Color Urine Appearance Urine pH Ur Specific [place] Urine Protein Urine Glucose (UA) Urine Ketones Urine Occult Blood Urine Nitrate Urine Bilirubin Urine Urobilinogen Ur Leukocyte Esterase Urine RBC Urine WBC Ur Squamous Epith Cells Urine Bacteria Hyaline Casts Urine Mucus Ur Culture Indicated? Vol Urine Centrifuged SARS-CoV-2 (PCR) Influenza A (RT-PCR) Influenza B (RT-PCR) RSV (PCR) Assessment & Plan Assessment and plan (1) Sepsis secondary to UTI: Status: Acute (2) Bladder cancer: Qualifiers: Bladder location: unspecified site Qualified Code(s): C67.9 - Malignant neoplasm of bladder, unspecified Status: Acute (3) LIZBET (acute kidney injury): Status: Acute (4) HTN (hypertension): Status: Acute (5) HLD (hyperlipidemia): Status: Acute (6) Anxiety: Status: Acute Assessment & Plan narrative: UTI / Sepsis - empiric Rocephin - IVFs - had 4 L bolused last night - cardiomegaly on CXR, w/o edema - if continues to be hypotensive he will need pressor to avoid fluid oveload Bladder malignancy / BPH with LUTS - follows with urology, Dr Osborn - on 03/20 had 2nd TURBT (1st done in February) to obtain more tissue Anxiety - citalopram HTN - home Lisinopril 10 mg daily held HLD - statin DVT prophylaxis - SCDs Patient consented to telemedicine, audio-video encounter with RN assisting during the exam. Patient located at [place], [place]. Provider located in [place]. Time-Based Coding :: [TOTAL MINUTES] spent with patient and on the chart (including review of chart, obtaining history, exam, reviewing outside data, placing orders, documenting exam and treatment plan, and counseling patient) on [DATE]. Quality VTE Deep Vein Thrombosis/Pulmonary Embolism Present on Admission: No
[2025-03-24] MEDS: LACTATED RINGERS 1,000 ML 100 ML IV ×2 (02:00→13:06)
[2025-03-24] MEDS: LACTATED RINGERS 1,000 ML 1000 ML IV (05:45)
[2025-03-24 05:54] LABS: Add Manual Diff / Slide Review NO; Basophils Absolute Auto 0 /uL (0-100); Basophils Percent Auto 0.2 % (0-2); Eosinophils Absolute Auto 0 /uL (0-450); Eosinophils Percent Auto 0.2 % (2-4); Hemoglobin 8.8 g/dL (13.5-17.5); Lymphocytes Absolute Auto 300 /uL (1100-4500); Lymphocytes Percent Auto 2.5 % (25-40); Mean Corpuscular Hemoglobin 29.6 PG (26-34); Mean Corpuscular Volume 87.3 fL (80-100); Monocytes Absolute Auto 600 /uL (0-900); Monocytes Percent Auto 5.1 % (3-14); Neutrophils Absolute Auto 10600 /uL (1500-7000); Platelet Count 219 X10^3/uL (150-400); Red Blood Cell Count 2.98 X10^6/uL (4.5-5.9); Red Cell Distribution Width 14.2 % (11.6-14.8); White Blood Cell Count 11.5 X10^3/uL (4.5-11.0)
[2025-03-24 06:33] LABS: BUN Creatinine Ratio 26.5 (6-22); Blood Urea Nitrogen 27 mg/dL (9-20); Calcium 8.2 mg/dL (8.4-10.2); Carbon Dioxide 24 mmol/L (22-32); Chloride 106 mmol/L (98-107); Estimated Glomerular Filt Rate > 60 mL/min (>60); Glucose 100 mg/dL (70-99); HEMOLYSIS < 15 (0-50); Potassium 4.1 mmol/L (3.4-5.1); Sodium 134 mmol/L (137-145)
[2025-03-24] MEDS: CITALOPRAM 10 MG TABLET 20 MG PO (10:16)
[2025-03-24] MEDS: ATORVASTATIN 20 MG TABLET 10 MG PO (10:23)
[2025-03-24] MEDS: ENOXAPARIN 30 MG/0.3 ML SYRINGE SUBCUT (10:24)
--- NOTE | 2025-03-24 13:49 | CM.DANOTE ---
Initial DCP Assessment Visit Note Reviewed EMR and team rounds for pt's medical status and updates. Met with pt/spouse at bedside to introduce self and role, pt was found to be resting in bed, doing a breathing tx at the time of this visit. Pt lives independently with his spouse in their own home here in [place]. His spouse will transport him home once he's medically cleared for d/c, likely a few more days. Payor: [facility] PCP: Dr. Eleanor Clay Pt is a 79 year-old M with a hx of bladder cancer, followed by Dr. Osborn, presented to the ED after he had fallen due to severe weakness. He had a cystoscopy procedure 2-days ago with Dr. Osborn, and was in clinic yesterday am getting his deleon removed. In the ED, he was found to be hyptertensive, tachycardic, and had elevated WBC and lactate. Labs suggested UTI, LIZBET, sepsis. He was started on IV antibiotics and admitted for further tx, monitoring. Blood and urine cultures are currently pending. DCP will continue to monitor for further evolving, final d/c assistance and/or resource needs. 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 Yes Advance Directives No on File History Provided By Patient,Family Member Has Patient been No admitted in last 30 days? Prior Living House Arrangements Household Members spouse Type of Drives own vehicle transporation used prior to admit Independent with ADL Yes 's Is patient alert and Yes oriented? Caregiver for No Another Comment OP Urology f/u Barriers to No Discharge Discharge Plan Home Referrals Initiated None needed Whiteboard Updated Yes in Patient Room with name and ext. # of Supervisor Cellars Review Status In Process Please Provide Date 03/24/25 Initial DC Assessment Was Performed
--- NOTE | 2025-03-24 15:30 | P.HP_ITS ---
History of Present Illness History of Present Illness Date Patient Seen: 03/24/25 Time Patient Seen: 15:31 Chief complaint: n/v and fell Narrative: Per overnight provider, 79 y/o with PMH of BPH, bladder cancer, HTN, HLD, gout, anxiety, came to ED weak, after he fell, nauseated, after one emesis. Few days ago he had cystoscopy for 2nf TURBT, apparently, with urologist and earlier today he had his catheter removed. On arrival hypotensive, tachycatdic, CT showing thickened bladder, labs leukocytosis with Lt shift and elevated lactate. Started on antibioptic and IVFs and admitted to medicine with UTI, LIZBET and sepsis. This afternoon patient is feeling much improved but still weak, BP are much improved. He complained of a L toe gout flare which has worsened this morning. [facility] Medical History (Updated 03/24/25 @ 05:42 by Alvin House MD) HLD (hyperlipidemia) HTN (hypertension) BPH (benign prostatic hyperplasia) Anxiety Rib pain Surgical History H/O transurethral resection of bladder tumor (TURBT) (02/17/25) Hx of cholecystectomy Social History household members: spouse alcohol intake: never Meds Home Medications and Allergies Home Medications ?Medication ?Instructions ?Recorded ?Confirmed ?Type citalopram 40 mg tablet 20 mg PO QDAY ##0 01/14/18 0 03/24/25 History lisinopril 10 mg tablet 10 mg PO QDAY #90 tabs 03/1003/24/25 Rx simvastatin 10 mg tablet 10 mg PO QDAY #90 tabs 03/1003/24/25 Rx metoprolol succinate 25 mg 25 mg PO DAILY 03/12/2508/08 History tablet,extended release 24 hr naproxen sodium 220 mg capsule 220 mg PO BID PRN Pain, Moderate 03/13/25 03/24/25 History (Aleve) colchicine 0.6 mg tablet 1.2 mg (2 x 0.6 mg) PO DAILY #10 03/23/25 03/24/25 Rx tabs prednisone 20 mg tablet 40 mg (2 x 20 mg) PO DAILY # 10 tabs 03/23/25 03/24/25 Rx Allergies Allergy/AdvReac Type Severity Reaction Status Date / Time Penicillins (PENICILLINS) Allergy Unknown Verified 03/20/25 08:13 tamsulosin AdvReac Severe Orthostatic Verified 03/20/25 08:13 hypotension. Review of Systems Review of Systems Narrative: All other systems reviewed with the patient and are negative unless otherwise stated. Exam Vital Signs (past 8 hours): - 03/24/25 08:00 03/24/25 14:00 Temperature 98.6 F 98.7 F Pulse Rate 100 H 90 Respiratory Rate 17 18 Blood Pressure 123/66 111/56 L Pulse Oximetry 93 92 Oxygen Flow Rate 1 1 Fraction of Inspired Oxygen 28 SaO2/FiO2 Ratio 339 Oxygen Delivery Method Nasal Cannula Oxygen Flow Rate 1 Narrative Exam Narrative: General - wdwn no acute distress CVS - RRR no m/r/g RS - CTA b/l no wheezing rhonchi or rales GI - S NT ND Ext: trace bilateral non-pitting edema, L hallux gout, mild erythema and warmth. Minimally tender. Objective Labs 03/24/25 05:47 03/24/25 05:47 Labs: Laboratory Results - last 24 hr 03/23/25 03/23/25 03/23/25 17:37 19:30 19:50 WBC 14.7 H RBC 3.81 L Hgb 11.1 L Hct 33.7 L MCV 88.4 MCH 29.1 MCHC 32.9 RDW 14.0 Plt Count 290 Neut % (Auto) 97.7 H Lymph % (Auto) 0.5 L [place] % (Auto) 1.6 L Eos % (Auto) 0.0 L Baso % (Auto) 0.2 Neut # (Auto) 96899 H Lymph # (Auto) 100 L [place] # (Auto) 200 Eos # (Auto) 0 Baso # (Auto) 0 PT 13.9 H INR 1.2 APTT 27 Sodium 136 L Potassium 4.4 Chloride 101 Carbon Dioxide 27 BUN 28 H Creatinine 1.38 H Estimated GFR 51 L BUN/Creatinine Ratio 20.3 Glucose 160 H Lactate 3.7 H 3.1 H Calcium 9.4 Total Bilirubin 0.9 AST 34 ALT 22 Alkaline Phosphatase 69 Total Protein 6.9 Albumin 4.0 Globulin 2.9 Albumin/Globulin Ratio 1.4 Lipase 41 Procalcitonin 3.24 H Urine Color [place] Urine Appearance Clear Urine pH TNP Ur Specific [place] TNP Urine Protein TNP Urine Glucose (UA) TNP Urine Ketones TNP Urine Occult Blood TNP Urine Nitrate TNP Urine Bilirubin TNP Urine Urobilinogen TNP Ur Leukocyte Esterase TNP Urine RBC 1-5/hpf D Urine WBC 5-10/hpf H Ur Squamous Epith Cells 0-1 /hpf Urine Bacteria Moderate (10-30) H Hyaline Casts 1-5/lpf Urine Mucus 2+ H Ur Culture Indicated? Specimen cultured Vol Urine Centrifuged 10ml (spun) SARS-CoV-2 (PCR) Negative Influenza A (RT-PCR) Flu a negative Influenza B (RT-PCR) Flu b negative RSV (PCR) Negative 03/23/25 03/23/25 03/24/25 21:13 23:15 05:47 WBC 11.5 H RBC 2.98 L Hgb 8.8 L Hct 26.0 L MCV 87.3 MCH 29.6 MCHC 34.0 RDW 14.2 Plt Count 219 Neut % (Auto) 92.0 H Lymph % (Auto) 2.5 L [place] % (Auto) 5.1 Eos % (Auto) 0.2 L Baso % (Auto) 0.2 Neut # (Auto) 17874 H Lymph # (Auto) 300 L [place] # (Auto) 600 Eos # (Auto) 0 Baso # (Auto) 0 PT INR APTT Sodium 134 L Potassium 4.1 Chloride 106 Carbon Dioxide 24 BUN 27 H Creatinine 1.02 Estimated GFR > 60 BUN/Creatinine Ratio 26.5 H Glucose 100 H Lactate 2.6 H 2.9 H Calcium 8.2 L Total Bilirubin AST ALT Alkaline Phosphatase Total Protein Albumin Globulin Albumin/Globulin Ratio Lipase Procalcitonin Urine Color Urine Appearance Urine pH Ur Specific [place] Urine Protein Urine Glucose (UA) Urine Ketones Urine Occult Blood Urine Nitrate Urine Bilirubin Urine Urobilinogen Ur Leukocyte Esterase Urine RBC Urine WBC Ur Squamous Epith Cells Urine Bacteria Hyaline Casts Urine Mucus Ur Culture Indicated? Vol Urine Centrifuged SARS-CoV-2 (PCR) Influenza A (RT-PCR) Influenza B (RT-PCR) RSV (PCR) Assessment & Plan Assessment & Plan narrative: Sepsis secondary to acute cystitis with LIZBET and hypotension, improving - continue empiric Rocephin - can stop IVF this afternoon, developing edema and BP is normal - had 4 L bolused last night - cardiomegaly on CXR, w/o edema - follow up blood and urine cultures. Lactate elevated but clinically improving, will recheck lactate tomorrow AM. - LIZBET nearly resolved on repeat labs this AM. Leukocytosis also improving. Bladder malignancy / BPH with LUTS - follows with urology, Dr Osborn - on 03/20 had 2nd TURBT (1st done in February) to obtain more tissue Anxiety - citalopram HTN - home Lisinopril 10 mg daily held, holding home metoprolol as well. HLD - statin Code: Full, surrogate is patient's spouse DVT: Lovenox daily I have utilized all available immediate resources to obtain, update, or review the patient's current medications. Dispo: patient admitted under inpatient status. Likely discharge to home, consider PT/OT but appears to be moving close to baseline even now. Additional history obtained via discussions with the overnight provider, spouse, and bedside RN. These discussions contributed to the creation of the above assessment and plan. I have reviewed patient's presenting documentation, labs, and imaging personally. Time-Based Coding :: [TOTAL MINUTES] spent with patient and on the chart (including review of chart, obtaining history, exam, reviewing outside data, placing orders, documenting exam and treatment plan, and counseling patient) on [DATE]. Quality VTE Deep Vein Thrombosis/Pulmonary Embolism Present on Admission: No
[2025-03-24] MEDS: predniSONE 20 MG TABLET 40 MG PO (15:46)
[2025-03-24] MEDS: cefTRIAXone 2,000 MG in SODIUM CHLORIDE 0.9% 100 ML 200 MG IV (23:42)
[2025-03-25 00:48] VITALS: BP 127/80; PULSE 80; RESP 18; TEMP 36.6; O2SAT 95
[2025-03-25 04:45] VITALS: BP 107/63; PULSE 76; RESP 19; TEMP 36.1; O2SAT 94
[2025-03-25 05:26] LABS: Add Manual Diff / Slide Review NO; Basophils Absolute Auto 0 /uL (0-100); Basophils Percent Auto 0.2 % (0-2); Eosinophils Absolute Auto 0 /uL (0-450); Hematocrit 28.3 % (41-53); Hemoglobin 9.7 g/dL (13.5-17.5); Lymphocytes Absolute Auto 500 /uL (1100-4500); Lymphocytes Percent Auto 6.8 % (25-40); Mean Corpuscular HGB Conc 34.3 % (30-36); Mean Corpuscular Hemoglobin 29.9 PG (26-34); Mean Corpuscular Volume 87.3 fL (80-100); Monocytes Absolute Auto 300 /uL (0-900); Monocytes Percent Auto 3.7 % (3-14); Neutrophils Absolute Auto 6700 /uL (1500-7000); Neutrophils Percent Auto 89.3 % (50-75); Platelet Count 230 X10^3/uL (150-400); Red Blood Cell Count 3.24 X10^6/uL (4.5-5.9); White Blood Cell Count 7.5 X10^3/uL (4.5-11.0)
[2025-03-25 05:35] LABS: Lactate (Lactic Acid) 1.3 mmol/L (0.7-2.1)
[2025-03-25 05:38] LABS: Alanine Aminotransferase 22 IU/L (<50); Albumin 3.4 g/dL (3.5-5.0); Albumin Globulin Ratio 1.2 (1.0-2.8); Alkaline Phosphatase 59 U/L (38-126); Aspartate Aminotransferase 45 IU/L (17-59); BUN Creatinine Ratio 24.1 (6-22); Bilirubin Total 0.4 mg/dL (0.2-1.3); Blood Urea Nitrogen 19 mg/dL (9-20); Calcium 8.8 mg/dL (8.4-10.2); Carbon Dioxide 24 mmol/L (22-32); Chloride 104 mmol/L (98-107); Estimated Glomerular Filt Rate > 60 mL/min (>60); Globulin 2.9 g/dL (1.7-4.1); Glucose 142 mg/dL (70-99); HEMOLYSIS < 15 (0-50); Magnesium 1.8 mg/dL (1.6-2.3); Potassium 4.6 mmol/L (3.4-5.1); Sodium 135 mmol/L (137-145); Total Protein 6.3 g/dL (6.3-8.2)
[2025-03-25 08:30] VITALS: BP 118/66; PULSE 78; RESP 17; TEMP 36.6; O2SAT 96
[2025-03-25] MEDS: ATORVASTATIN 20 MG TABLET 10 MG PO (08:36)
[2025-03-25] MEDS: COLCHICINE 0.6 MG TABLET 1.2 MG PO (08:37)
[2025-03-25] MEDS: predniSONE 20 MG TABLET 40 MG PO (08:38)
[2025-03-25] MEDS: ENOXAPARIN 30 MG/0.3 ML SYRINGE SUBCUT (08:38)
[2025-03-25] MEDS: CITALOPRAM 10 MG TABLET 20 MG PO (08:38)
[2025-03-25 12:00] VITALS: BP 118/66; PULSE 78; RESP 16; TEMP 36.6; O2SAT 96
--- NOTE | 2025-03-25 12:13 | PM.DS.1 ---
History of Present Illness History of Present Illness Chief complaint: n/v and fell Narrative: Per overnight provider, 79 y/o with PMH of BPH, bladder cancer, HTN, HLD, gout, anxiety, came to ED weak, after he fell, nauseated, after one emesis. Few days ago he had cystoscopy for 2nf TURBT, apparently, with urologist and earlier today he had his catheter removed. On arrival hypotensive, tachycatdic, CT showing thickened bladder, labs leukocytosis with Lt shift and elevated lactate. Started on antibioptic and IVFs and admitted to medicine with UTI, LIZBET and sepsis. This afternoon patient is feeling much improved but still weak, BP are much improved. He complained of a L toe gout flare which has worsened this morning. Discharge Providers Provider Date of admission: 03/23/25 22:41 Discharge Date: 03/25/25 Primary care physician: Laya Clay DO Discharge provider: Derian Pate DO Summary Hospital Course Discharge Diagnosis: Sepsis secondary to acute cystitis secondary to recent cystoscopy with LIZBET and hypotension, improving. Bladder malignancy / BPH with LUTS Anxiety HTN HLD Gout flare Hospital Course: This is an 79 year old male admitted with sepsis secondary to acute cystitis after a recent cystoscopy with urology. He improved with ceftriaxone with resolution of his LIZBET, hypotension, and leukocytosis after a couple of days. Urine cultures had no growthand neither did his blood cultures. Given his marked clinical improvement with ceftriaxone, he was discharged with another 7 days of cefdinir to complete his antibiotic course. During his stay, he was noted to have a flare of gout on his left hallux, improved with steroids and colchicine which had already been prescribed by his PCP. No other changes were recommended to his other home medications on discharge. Time Spent with Patient Time spent: Greater than 30 minutes Exam Vital Signs (past 8 hours): - 03/25/25 04:45 03/25/25 08:30 Temperature 96.9 F L 97.9 F Pulse Rate 76 78 Respiratory Rate 19 17 Blood Pressure 107/63 118/66 Pulse Oximetry 94 96 Oxygen Flow Rate 0 0 Fraction of Inspired Oxygen 28 SaO2/FiO2 Ratio 339 Oxygen Delivery Method Room Air Oxygen Flow Rate 0 Narrative Exam Narrative: General - wdwn no acute distress CVS - RRR no m/r/g RS - CTA b/l no wheezing rhonchi or rales GI - S NT ND Ext: trace bilateral non-pitting edema, L hallux gout, mild erythema and warmth. Minimally tender. Objective Labs 03/25/25 04:46 03/25/25 04:46 Labs: Laboratory Results - last 24 hr 03/25/25 04:46 WBC 7.5 RBC 3.24 L Hgb 9.7 L Hct 28.3 L MCV 87.3 MCH 29.9 MCHC 34.3 RDW 14.0 Plt Count 230 Neut % (Auto) 89.3 H Lymph % (Auto) 6.8 L [place] % (Auto) 3.7 Eos % (Auto) 0.0 L Baso % (Auto) 0.2 Neut # (Auto) 6700 Lymph # (Auto) 500 L [place] # (Auto) 300 Eos # (Auto) 0 Baso # (Auto) 0 Sodium 135 L Potassium 4.6 Chloride 104 Carbon Dioxide 24 BUN 19 Creatinine 0.79 Estimated GFR > 60 BUN/Creatinine Ratio 24.1 H Glucose 142 H Lactate 1.3 Calcium 8.8 Magnesium 1.8 Total Bilirubin 0.4 AST 45 ALT 22 Alkaline Phosphatase 59 Total Protein 6.3 Albumin 3.4 L Globulin 2.9 Albumin/Globulin Ratio 1.2 PFSH Medical History (Updated 03/24/25 @ 05:42 by Alvin House MD) HLD (hyperlipidemia) HTN (hypertension) BPH (benign prostatic hyperplasia) Anxiety Rib pain Surgical History H/O transurethral resection of bladder tumor (TURBT) (02/17/25) Hx of cholecystectomy Social History household members: spouse alcohol intake: never Discharge Plan Discharge Plan Patient Disposition: Home Provider Discharge Comment: You were admitted to the hospital with probable urinary infection, improved with antibiotics. Cultures were negative. Since you are improving on an IV antibiotic, recommend continuing on a similar oral antibiotic at home since cultures are negative. Continue 1 more week at home to complete therapy. Discharge orders & Medications Prescriptions: New cefdinir 300 mg capsule 300 mg PO BID 7 Days Qty: 14 0RF Continued citalopram 40 MG tablet 20 mg PO QDAY Qty: 0 colchicine 0.6 mg tablet 1.2 mg PO DAILY Qty: 10 0RF Patient Comments: new RX.... has not picked up yet. Rx Instructions: Take two tablets by mouth once daily for five days. prednisone 20 mg tablet 40 mg PO DAILY Qty: 10 0RF Patient Comments: new RX... has not picked up yet. For gout attack Rx Instructions: Take two tablets by mouth once a day for five days. lisinopril 10 mg tablet 10 mg PO QDAY Qty: 90 1RF simvastatin 10 mg tablet 10 mg PO QDAY Qty: 90 1RF Discontinued metoprolol succinate 25 mg tablet extended release 24 hr 25 mg PO DAILY naproxen sodium [Aleve] 220 mg Capsule 220 mg PO BID PRN (Reason: Pain, Moderate) Follow up/Referrals: Laya Clay DO [Primary Care Provider, Family Practice] Diet/Activity/Treatments Diet: Diet as Tolerated and Regular Activity: As tolerated, no restrictions Visit Report/Discharge Packet Stand Alone Forms: Patient Portal/API, Stroke Signs & Symptoms Discharge Data Primary Care Provider: Laya Clay Quality VTE Deep Vein Thrombosis/Pulmonary Embolism Present on Admission: No
--- NOTE | 2025-03-25 14:36 | PC.NURSE ---
Patient is A&OX3, VSS, afebrile on RA. He denies dizziness with ambulating and no observed BP drops with ambulating around the room. Bed and chair alarm placed although patient walks with steady giat. He is cleared upon MD evaluation at bedside today. He verbalizes understanding of discharge medications, diagnosis, worsening symptoms and follow up with PCP and urologist. He is escorted to private vehicle for discharge this afternoon with and all of his belongings at 2:00 pm.
== END 2025-03-25 14:05 | disposition home or self-care (01) | DRG 862 ==
LOC: ED 22:41 → AC 22:42
PROVIDERS: Emergency Medicine; Internal Medicine; Admitting Provider Internal Medicine; Emergency Provider Emergency Medicine; PCP Family Medicine; Referring Provider Emergency Medicine; Visit Provider Internal Medicine
DX: T81.44XA Sepsis following a procedure, initial encounter (principal); A41.9 Sepsis, unspecified organism; R65.20 Severe sepsis without septic shock; N17.9 Acute kidney failure, unspecified; N30.00 Acute cystitis without hematuria; C67.9 Malignant neoplasm of bladder, unspecified; I10 Essential (primary) hypertension; E78.5 Hyperlipidemia, unspecified; F41.9 Anxiety disorder, unspecified; N40.1 Benign prostatic hyperplasia with lower urinary tract symptoms; M10.9 Gout, unspecified; Y83.8 Other surgical procedures as the cause of abnormal reaction of the patient, or of later complication, without mention of misadventure at the time of the procedure
CPT/HCPCS: 0241U; 36415; 71045; 74177; 80048; 80053; 81001; 83605; 83690; 83735; 84145; 85025; 85610; 85730; 87040; 87086; 93005; 96361; 96365; 99284; 99285; J0330; J0696; J1650; J1956; J2405; J2704; J3010; Q9967

== ENCOUNTER → 2025-04-03 08:48 | Outpatient (CLI) | payer MEDICARE, SELFPAY ==
[2025-03-23 23:43] VITALS: BMI 34.7
== END ==
PROVIDERS: PCP Family Medicine; Visit Provider Family Medicine
DX: N39.0 Urinary tract infection, site not specified (principal)
CPT/HCPCS: 87086

== ENCOUNTER → 2025-04-08 12:11 | Outpatient (CLI) | payer MEDICARE, SELFPAY ==
[2025-03-23 23:43] VITALS: BMI 34.7
--- NOTE | 2025-04-08 12:44 | DI.ECHO.S_ITS ---
[facility] : : [id number] : : [place] : : [id number] : : Phone: [phone] Echocardiogram Report + + :Name: EMY JIMENEZ Study Date: 04/08/2025 Height: 67 in : :[facility] ReadingLocation: Weight: 222 lb : : Gender: Male BSA: 2.1 m2 : :: 1945 Age: 79 yrs BP: 124/71 mmHg: :Reason For Study: CARDIOMEGALY, HYPERTENSION : :Ordering Physician: VIN, : :FILIBERTO Performed By: Jose Antonio Castellanos : :Referring: FILIBERTO BANUELOS : + + Interpretation Summary Technically difficult study with poor acoustic windows. 1) Normal left ventricular thickness, size, wall motion, and systolic function (EF 55-60%). 2) The right ventricle is not well visualized. The right ventricle grossly appears normal in size with probable normal systolic function. 3) No significant valvular abnormalities on doppler assessment. 4) No prior Echo available for comparison. Procedure: A two-dimensional transthoracic echocardiogram with color flow and Doppler was performed. A contrast injection of Definity was performed to improve assessment of LV function. The study quality was technically difficult. There is no prior echocardiogram noted for this patient. The patient was in normal sinus rhythm during the exam. Left Ventricle: The left ventricle is normal in size. Left ventricular wall thickness is mildly increased. There is no ventricular septal defect visualized. The ejection fraction is estimated to be 55-60%. There are no focal wall motion abnormalities. Diastolic parameters suggest a relaxation abnormality of the left ventricle, consistent with probable normal filling pressures. Right Ventricle: The right ventricle is not well visualized. The right ventricle grossly appears normal in size with probable normal systolic function. Atria: The left atrium is not well visualized. Right atrium not well visualized. The interatrial septum is not well visualized. Mitral Valve: There is mild mitral annular calcification. The mitral valve is not well visualized. There is no mitral regurgitation noted. Aortic Valve: The aortic valve is trileaflet. The aortic valve opens well. There is no aortic valve stenosis. No aortic regurgitation is present. Tricuspid Valve: The tricuspid valve is not well visualized. There is a trace or physiologic amount of tricuspid regurgitation. Pulmonic Valve: The pulmonic valve is not well visualized. There is no pulmonic valvular regurgitation. Great Vessels: The aortic root is borderline dilated. The dimensions of the ascending aorta are normal. The pulmonary artery is not well visualized, but is probably normal size. The IVC is of normal diameter and collapses greater than 50% with a sniff. This suggests a low right atrial pressure of 3 mm Hg. Echogenic mass 1X1.1 cm visualized at IVC opening. Pericardium/ Pleura There is no pericardial effusion. There is no pleural effusion. MMode/2D Measurements & Calculations LVIDd: 4.3 cm LVOT diam: 2.0 cm LVIDs: 2.5 cm Ao root diam: 3.9 cm FS: 41.0 % asc Aorta Diam: 3.4 cm EPSS: 0.47 cm IVSd: 1.2 cm LVPWd: 1.2 cm LV barker. diameter/BSA (cm/m^2): 2.0 LV sys. diameter/BSA (cm/m^2): 1.2 RA long axis: 5.0 cm TAPSE: 2.3 cm RA area: 17.9 cm2 RA vol: 55.1 ml RA : 26.1 ml/m2 IVC diam: 1.8 cm Doppler Measurements & Calculations Ao V2 max: 131.6 cm/sec LVOT Max Issac: 115.8 cm/sec Ao V2 mean: 94.9 cm/sec LV V1 max P.4 mmHg Ao max P.9 mmHg LV V1 VTI: 25.4 cm Ao mean P.9 mmHg CHARLY(I,D): 2.8 cm2 Ao V2 VTI: 27.4 cm CHARLY(V,D): 2.7 cm2 sev ratio: 0.92 CHARLY indexed to BSA (cm^2/m^2): 1.3 MV E max issac: 73.7 cm/sec TR max issac: 218.9 cm/sec MV A max issac: 111.6 cm/sec TR max P.2 mmHg MV E/A: 0.66 PA V2 max: 87.4 cm/sec Med Peak E' Issac: 5.1 cm/sec PA V2 mean: 65.6 cm/sec E/E' med: 14.5 PA mean P.9 mmHg Lat Peak E' Issac: 5.6 cm/sec PA pr(Accel): 41.3 mmHg E/E' lat: 13.1 E/e' average: 13.8 MV dec time: 0.24 sec SV(LVOT): 77.5 ml Reading Physician:04:04 PM
== END ==
LOC: ECHO 12:11
PROVIDERS: PCP Family Medicine; Referring Provider Family Medicine; Visit Provider Family Medicine
DX: I34.81 Nonrheumatic mitral (valve) annulus calcification (principal); I51.7 Cardiomegaly; I10 Essential (primary) hypertension; R42 Dizziness and giddiness; N32.89 Other specified disorders of bladder; E78.5 Hyperlipidemia, unspecified; Z87.891 Personal history of nicotine dependence; Z86.19 Personal history of other infectious and parasitic diseases
CPT/HCPCS: C8929; Q9957

== ENCOUNTER → 2025-04-28 08:37 | Outpatient (CLI) | payer MEDICARE, SELFPAY ==
[2025-03-23 23:43] VITALS: BMI 34.7
== END ==
PROVIDERS: PCP Family Medicine; Visit Provider Urology
DX: C67.9 Malignant neoplasm of bladder, unspecified (principal); N40.1 Benign prostatic hyperplasia with lower urinary tract symptoms
CPT/HCPCS: 51720; 81002; 87086; J9171; J9201